=== PATIENT | male | born 1955 | race Caucasian/White ===

== ENCOUNTER 2016-06-20 20:15 | Emergency (ER) | payer BC ==
[~2016-06-20] VITALS: Ht 170.2 cm; Wt 102.1 kg
[~2016-06-20 20:15] MED LIST: ALLO300T2 PO; AMLO-110 PO; ASPEC325 PO; FURO20TA PO; LISI-725 PO; METO25TA56 PO; NPR500 PO; OMEG10002 PO; POTA10CA28 PO; ROSU40TA PO
[2016-06-20 20:26] VITALS: BP 194/96; PULSE 65; TEMP 37; O2SAT 95; Ht 170.2 cm; Wt 102.1 kg
--- NOTE | 2016-06-21 00:15 | EMERGENCY ROOM VISIT NOTE ---
ED Visit Note First contact with patient: 20:41 CHIEF COMPLAINT: Tick in the right upper thigh HISTORY OF PRESENT ILLNESS: Patient is a 60-year-old white male who noted a possible tick embedded in his right upper thigh this evening. He noted a small black dot with surrounding redness and tenderness. He thought it could be a tick. He was outside recently where he could have been exposed. REVIEW OF SYSTEMS: Review of systems as per HPI. All other systems reviewed were negative. At least 6 systems reviewed. PMH: Electronic medical records are reviewed and summarized as above/below. See Problem List. He believes his tetanus is up-to-date. SOCIAL HISTORY: Patient lives at home. Nonsmoker. PHYSICAL EXAM: Vital Signs: Reviewed Nurse's notes. INTEGUMENTARY: Examination of the proximal, anterior thigh show a small, raised , erythematous papule that doesn't appear to have a dark center. There is no obvious intact tick. The area is slightly tender to palpation. EMERGENCY DEPARTMENT COURSE: The area was cleansed with alcohol and anesthetized with ethyl chloride. An 18-gauge needle was inserted underneath the area and excised off. There was no remaining foreign body. I discussed with the patient that it did not appear classic for a tick bite, however treated it as such. Could also have been a small pustule or infected hair follicle. Nonetheless, he was educated on the worrisome signs or symptoms for which she should return to the emergency department. The area was cleansed and covered with bacitracin and a light bandage. Problem List Medical Problems: (1) Fall Status: Resolved (2) Hyperlipidemia Nec/Nos Status: Chronic (3) Hypertension Status: Chronic (4) Left Knee DJD Status: Resolved (5) Neck strain Status: Resolved (6) Right Knee DJD Status: Resolved (7) Shoulder contusion Status: Resolved (8) Sleep Apnea, Unspecified Status: Chronic (9) Tick bite Status: Resolved Surgical Problems: (1) Total knee replacement status Status: Resolved Current/Historical Medications Scheduled Allopurinol (Zyloprim), 300 MG PO HS Amlodipine (Norvasc), 5 MG PO QAM Aspirin (Aspirin), 325 MG PO BID Furosemide (Lasix), 20 MG PO QAM Lisinopril (Zestril), 20 MG PO QAM Metoprolol Tartrate (Lopressor) (Lopressor), 25 MG PO BID Naproxen (Naprosyn), 1 TAB PO BID [place]-3 Fatty Acids (Fish Oil), 1,000 MG PO BID Potassium Chloride (Micro-K Ext Rel), 10 MEQ PO QAM Rosuvastatin Calcium (Crestor), 40 MG PO QAM Allergies Coded Allergies: No Known Allergies (Verified , 01/07/16) Vital Signs Date Time Temp Pulse Resp B/P Pulse Ox O2 Delivery O2 Flow Rate FiO2 06/20/16 20:26 37.0 65 20 194/96 95 Room Air Departure Information Impression Primary Impression: Tick bite Dispostion Home / Self-Care Condition GOOD Patient Instructions My [facility] [place] [employer] Additional Instructions Use Ibuprofen or Tylenol as needed for pain/discomfort. Follow up with family physician for continued care and treatment; rashes, bullet lesion, muscle or joint pain. Watch for signs of infection; increasing redness and swelling, pus like drainage or fevers. Keep antibiotic ointment on the site for 2-3 days. Return to the ED for signs of infection. Problem Qualifiers Primary Impression: Tick bite Encounter type: initial encounter Qualified Codes: W57.XXXA - Bitten or stung by nonvenomous insect and other nonvenomous arthropods, initial encounter
== END 2016-06-20 21:35 | disposition home or self-care (01) ==
LOC: C.EDB 20:16 → C.EDD 21:35
DX: S70.361A Insect bite (nonvenomous), right thigh, initial encounter (principal); W57.XXXA Bitten or stung by nonvenomous insect and other nonvenomous arthropods, initial encounter; E78.5 Hyperlipidemia, unspecified; G47.30 Sleep apnea, unspecified; Z79.1 Long term (current) use of non-steroidal anti-inflammatories (NSAID); Z79.82 Long term (current) use of aspirin; Z79.899 Other long term (current) drug therapy

== ENCOUNTER 2016-07-14 09:35 | Emergency (ER) | payer OTHER, BC ==
[~2016-07-14] VITALS: Ht 170.2 cm; Wt 100.7 kg
[2016-07-14 09:37] VITALS: TEMP 36.5; Ht 170.2 cm; Wt 100.7 kg
[2016-07-14] MEDS ORDERED: OXYCODONE HCL IR 5 MG TAB (IMMEDIATE RELEASE) PO STA (09:44)
--- NOTE | 2016-07-14 10:00 | EMERGENCY ROOM VISIT NOTE ---
History Report prepared by Tnoya: Eufemia Muse Under the Supervision of: Dr. Yordan Edouard D.O. First contact with patient: 09:41 Chief Complaint: KNEEPAIN Stated Complaint: LF KNEE PAIN History of Present Illness The patient is a 60 year old male who presents to the Emergency Room with complaints of persistent left knee pain that began prior to arrival. He currently rates his discomfort as an 8.5/10 in severity. The patient states that he had a left knee replacement in January. He states that today while at work he fell, twisting his left knee. The patient describes his pain as a throbbing pain. He states that he had no other injury due to the fall. The patient denies hitting his head. He denies any back pain or groin pain. Source of History: patient Onset: prior to arrival Position: knee (left) Symptom Intensity: 8.5/10 Quality: other (throbbing) Timing: other (persistent) Associated Symptoms: No back pain Review of Systems See HPI for pertinent positives & negatives. A total of 10 systems reviewed and were otherwise negative. Past Medical & Surgical Medical Problems: (1) Fall (2) Hyperlipidemia Nec/Nos (3) Hypertension (4) Left Knee DJD (5) Neck strain (6) Right Knee DJD (7) Shoulder contusion (8) Sleep Apnea, Unspecified (9) Tick bite Surgical Problems: (1) Total knee replacement status Family History Diabetes mellitus Heart disease Hypertension Social History Smoking Status: Current Every Day Smoker Alcohol Use: none Drug Use: none Marital Status: Housing Status: lives with family Occupation Status: employed Current/Historical Medications Scheduled Allopurinol (Zyloprim), 300 MG PO HS Amlodipine (Norvasc), 5 MG PO QAM Aspirin (Aspirin), 325 MG PO BID Furosemide (Lasix), 20 MG PO QAM Lisinopril (Zestril), 20 MG PO QAM Metoprolol Tartrate (Lopressor) (Lopressor), 25 MG PO BID [place]-3 Fatty Acids (Fish Oil), 1,000 MG PO BID Potassium Chloride (Micro-K Ext Rel), 10 MEQ PO QAM Rosuvastatin Calcium (Crestor), 40 MG PO QAM Scheduled PRN Oxycodone Immediate Rel Tab (Roxicodone Ir), 1-2 TAB PO Q4H PRN for Severe Pain Allergies Coded Allergies: No Known Allergies (Verified , 07/14/16) Physical Exam Vital Signs Date Time Temp Pulse Resp B/P Pulse Ox O2 Delivery O2 Flow Rate FiO2 07/14/16 10:47 66 18 150/89 96 07/14/16 09:37 36.5 62 18 168/95 95 Room Air Physical Exam GENERAL: Patient is awake, alert, very anxious and uncomfortable appearing. Appears to be in significant pain. EYES: The conjunctivae are clear. The pupils are round and reactive. EARS, NOSE, MOUTH AND THROAT: The nose is without any evidence of any deformity. Mucous membranes are moist tongue is midline NECK: The neck is nontender and supple. RESPIRATORY: Normal respiratory effort is noted there is no evidence of wheezing rhonchi or rales CARDIOVASCULAR: Regular rate and rhythm noted there no murmurs rubs or gallops normal S1 normal S2 GASTROINTESTINAL: The abdomen is soft. Bowel sounds are present in all quadrants. Abdomen is nontender BACK: No midline tenderness or or step-off noted range of motion in flexion extension as well as rotation no signs of muscle spasm noted MUSCULOSKELETAL/EXTREMITIES: Swelling over left knee. Knee effusion noted to palpation. Patient was able to keep left leg extended off of bed, tenderness over the lateral aspect of knee. Negative anterior drawer test. Tenderness over proximal tib/fib. SKIN: There is no obvious evidence of any rash. There are no petechiae, pallor or cyanosis noted. NEUROLOGIC: Patient is awake alert and oriented x3. Medical Decision & Procedures ER Provider Diagnostic Interpretation: X-ray results as stated below per interpretation by me and the radiologist. LEFT KNEE 1 OR 2 VIEWS ROUTINE CLINICAL HISTORY: fall trauma. Pain. COMPARISON: 01/07/2016 DISCUSSION: Operative findings consistent with a prior total left knee replacement. No acute bony abnormality. Good contact between prosthetic and underlying bone. Mild prepatellar soft tissue edema IMPRESSION: No acute bony abnormalities status post total left knee prosthetic Electronically signed by: Harish Hoffman M.D. 07/14/2016 10:10 AM Dictated Date/Time: 07/14/2016 10:09 AM Medications Administered Medications (Trade) Dose Ordered Sig/Law Route Start Time Stop Time Status Last Admin Dose Admin Oxycodone HCl (Roxicodone Immediate Rel Tab) 5 mg NOW STAT PO 07/14/16 09:44 3/14/17 09:45 DC 07/14/16 09:53 5 MG ED Course 0942: The patient was evaluated in room B3B. A complete history and physical examination were performed. 0944: Ordered Oxycodone HCl 5 mg PO. 1014: I reevaluated the patient and he is resting comfortably. I discussed the exam findings with him and I discussed the treatment plan. He verbalized complete understanding and agreement. He is ready to go home. Medical Decision Differential diagnosis: Etiologies such as fracture, dislocation, neurovascular compromise, compartment syndrome, soft tissue injury, as well as others were entertained. Nursing notes reviewed. The patient is a 60-year-old male who has a history of knee replacement surgery who presented to the emergency department for an evaluation of left knee pain after fall. The patient has significant swelling and tenderness over the lateral aspect of the knee. X-rays did not reveal any bony abnormality and the replacement appears intact. I discussed the patient's review graphic studies with him. He was treated with pain medication and placed in a knee immobilizer and given crutches. At this time I feel this represents a lateral collateral ligament injury. I discussed this injury with him. I encouraged him to follow- up with his general orthopedic doctor this week. He was also encouraged to continue to be minimal weightbearing and use the crutches and a knee immobilizer until he was pain-free and cleared by his primary orthopedic physician. He was encouraged to return to the emergency department immediately if symptoms change worsen or the need arises. Impression Primary Impression: Fall Additional Impressions: Effusion, left knee Left knee sprain Internal derangement of left knee Scribe Attestation The scribe's documentation has been prepared under my direction and personally reviewed by me in its entirety. I confirm that the note above accurately reflects all work, treatment, procedures, and medical decision making performed by me. Departure Information Dispostion Home / Self-Care Prescriptions Oxycodone Immediate Rel Tab (ROXICODONE IR) 5 Mg Tab 1-2 TAB PO Q4H Y for Severe Pain, #20 TAB Prov: Yordan Edouard, 07/14/16 Referrals No Doctor, Assigned (PCP) Forms HOME CARE DOCUMENTATION FORM, IMPORTANT VISIT INFORMATION, Work Instructions Patient Instructions ED Sprain Knee Collateral Ligaments, My [facility] Additional Instructions Follow-up with your orthopedic physician this week. Rest and avoid any strenuous activity. Continue using Motrin and Tylenol as directed for mild pain. Continue using the knee immobilizer and crutches with minimal weightbearing until your pain free and cleared by your primary orthopedic surgeon. Problem Qualifiers Primary Impression: Fall Encounter type: initial encounter Qualified Codes: W19.XXXA - Unspecified fall, initial encounter Additional Impressions: Left knee sprain Encounter type: initial encounter Involved ligament of knee: lateral collateral ligament Qualified Codes: S83.422A - Sprain of lateral collateral ligament of left knee, initial encounter
--- NOTE | 2016-07-14 10:11 | DIAGNOSTIC IMAGING REPORT ---
LEFT KNEE 1 OR 2 VIEWS ROUTINE CLINICAL HISTORY: fall trauma. Pain. COMPARISON: 01/07/2016 DISCUSSION: Operative findings consistent with a prior total left knee replacement. No acute bony abnormality. Good contact between prosthetic and underlying bone. Mild prepatellar soft tissue edema IMPRESSION: No acute bony abnormalities status post total left knee prosthetic Electronically signed by: Harish Hoffman M.D. 07/14/2016 10:10 AM Dictated Date/Time: 07/14/2016 10:09 AM
[2016-07-14] MEDS ORDERED: OXYC1TAB3 PO (10:24)
[2016-07-14 10:47] VITALS: BP 150/89; PULSE 66; O2SAT 96
== END 2016-07-14 10:48 | disposition home or self-care (01) ==
LOC: EDBD 09:35 → C.EDB 09:37
DX: S83.92XA Sprain of unspecified site of left knee, initial encounter (principal); W19.XXXA Unspecified fall, initial encounter; Y92.89 Other specified places as the place of occurrence of the external cause; Y99.0 Civilian activity done for income or pay; M23.92 Unspecified internal derangement of left knee; M25.462 Effusion, left knee; I10 Essential (primary) hypertension; E78.5 Hyperlipidemia, unspecified; G47.30 Sleep apnea, unspecified; F17.200 Nicotine dependence, unspecified, uncomplicated; Z87.828 Personal history of other (healed) physical injury and trauma; Z96.659 Presence of unspecified artificial knee joint; Z79.82 Long term (current) use of aspirin; Z79.899 Other long term (current) drug therapy; Z83.3 Family history of diabetes mellitus; Z82.49 Family history of ischemic heart disease and other diseases of the circulatory system

== ENCOUNTER → 2017-02-01 | Outpatient (CLI) | payer BC ==
[~2017-02-01] MED LIST changes: -NPR500 PO
[2017-02-01 11:32] LABS: HEMATOCRIT 50.8 % (42-52); MEAN CELL VOLUME 90.4 fL (80-100); MEAN CORPUSCULAR HEMOGLOBIN 30.8 pg (25-34); MEAN CORPUSCULAR HGB CONC 34.1 g/dl (32-36); MEAN PLATELET VOLUME 10.3 fL (7.4-10.4); PLATELET COUNT 149 K/uL (130-400); RED BLOOD COUNT 5.62 M/uL (4.7-6.1); WHITE BLOOD COUNT 7.85 K/uL (4.8-10.8)
== END | disposition home or self-care (01) ==
LOC: C.LABBC 08:33
PROVIDERS: ATTEND Orthopaedic Surgery Sports Medicine
DX: M25.469 Effusion, unspecified knee (principal)

== ENCOUNTER → 2017-02-08 | Outpatient (CLI) | payer BC ==
[2017-02-08 18:15] LABS: SYNOVIAL FLUID APPEARANCE HAZY; SYNOVIAL FLUID COLOR YELLOW; SYNOVIAL FLUID MONONUC RELAT 64.2 %; SYNOVIAL FLUID POLYNUC RELAT 35.8 %
== END | disposition home or self-care (01) ==
LOC: C.LABBC 12:43
PROVIDERS: ATTEND Orthopaedic Surgery Sports Medicine
DX: M25.469 Effusion, unspecified knee (principal)

== ENCOUNTER 2024-03-19 14:41 | Inpatient (IN) ==
--- OUTSIDE RECORDS SUMMARY | 2024-03-19 14:47 | External Medical Summary ---
Author Name Unknown Address Unknown Organization [id number]:[facility] - [address] [place] [address] Laboratory Report Ordering Provider Test Date Status ALEXANDRE KAPOOR 11/30/2023 07:06:23 Final Observation Date Value Abnormality Reference (Units ) Status WBC, Total 11/30/2023 07:06:23 7.35 4.00-10.80 (K/uL) Final RBC 11/30/2023 07:06:23 5.64 4.50-5.25 (M/uL) Final Hemoglobin 11/30/2023 07:06:23 17.2 Above high normal 14.0-16.8 (g/dL) Final HCT 11/30/2023 07:06:23 51.5 Above high normal 40.0-48.4 (%) Final MCV 11/30/2023 07:06:23 91.3 82.0-99.5 (fL) Final MCH 11/30/2023 07:06:23 30.5 27.0-34.0 (pg) Final MCHC 11/30/2023 07:06:23 33.4 32.0-36.0 (g/dL) Final RDW 11/30/2023 07:06:23 14.1 11.5-15.5 (%) Final Platelets 11/30/2023 07:06:23 164 140-400 (K/uL) Final MPV 11/30/2023 07:06:23 11.2 6.6-11.1 (fL) Final Nucleated erythrocytes/100 leukocytes [Ratio] in Blood by Automated count 11/30/2023 07:06:23 0 <=0 (/100 WBCs) Final Performing Location [facility] - [address] [place] [address]
--- OUTSIDE RECORDS SUMMARY | 2024-03-19 14:47 | External Medical Summary | Summary of Care ---
Author Name Unknown Organization [facility] Address [address] [place] [address] Phone [phone] Care Team Providers Care Washer And Crusher Tender Name Role Phone Phong Matute PA-C Primary Care Provider [phone] Reason for Visit * Reason Comments Outpatient Testing Encounter Details Date Type Department Care Team (Late st Contact Info) Description 11/30/2023 7:10 AM EDT Laboratory [facility] [address] [place], [facility] [address] [place] [address] Essential hypertension with goal blood pressure less than 150/90 Allergies No known active allergiesdocumented as of this encounter (statuses as of 11/30/2023) Medications Medication Sig Dispensed Refills Start Date End Date Status FISH OIL 1000 MG PO CAPSIndications:Mixed dyslipidemia one pill three times a day 90 5 02/20/2008 Active Acetaminophen-Codeine #3 300-30 MG Oral Tablet (Tylenol #3) Take by mouth 1 Tablet every 4 hours as needed for Pain, Moderate. May take 2 tablets for severe pain. 15 Tablet 1 08/29/2021 Active Meloxicam 15 MG Oral Tablet (Mobic)Indications:Ar thralgia of both knees,Chronic bilateral low back pain without sciatica TAKE 1 TABLET BY MOUTH DAILY for pain 90 Tablet 2 06/16/2023 Active Furosemide 20 MG Oral Tablet (Lasix)Indications:Ed lobo TAKE 1 TABLET BY MOUTH DAILY 90 Tablet 3 06/17/2023 Active Lisinopril 20 MG Oral Tablet (Prinivil)Indications :HTN, goal below 140/90 TAKE 2 TABLETS BY MOUTH IN THE MORNING 180 Tablet 3 06/17/2023 Active Allopurinol 300 MG Oral Tablet (Zyloprim)Indications :Gout, unspecified cause, unspecified chronicity, unspecified site TAKE 1 TABLET BY MOUTH DAILY 90 Tablet 3 06/17/2023 Active Potassium Chloride ER 10 MEQ Oral Tablet Extended Release TAKE 1 TABLET BY MOUTH DAILY 90 Tablet 3 06/17/2023 Active Metoprolol Succinate ER 25 MG Oral Tablet Extended Release 24 Hour (toPROL XL)Indications:HTN, goal below 140/90 TAKE 1 TABLET BY MOUTH DAILY 90 Tablet 3 06/17/2023 Active Rosuvastatin Calcium 40 MG Oral Tablet (Crestor)Indications: Mixed dyslipidemia TAKE 1 TABLET BY MOUTH DAILY 90 Tablet 3 06/17/2023 Active amLODIPine Besylate 10 MG Oral Tablet (Norvasc)Indications: Essential hypertension with goal blood pressure less than 140/90 TAKE 1 TABLET BY MOUTH DAILY 90 Tablet 3 06/17/2023 Active Spironolactone 25 MG Oral Tablet (Aldactone)Indication s:HTN, goal below 140/90 Take 1 Tablet by mouth in the morning. 30 Tablet 11 08/27/2023 Active documented as of this encounter (statuses as of 11/30/2023) Active Problems Problem Noted Date Diagnosed Date AAA (abdominal aortic aneurysm) 04/14/2023 Overview: 3.6 cm AAA noted on screening us 04/08/23 Carpal tunnel syndrome, bilateral 05/21/2021 Mixed dyslipidemia 10/10/2020 HTN, goal below 140/90 04/10/2015 Status post unicompartmental knee replacement, r ight 10/09/2014 Displacement of cervical int ervertebral disc without myelopathy 12/18/2011 BMI 35-39 ISOLATED (SEE ACTUAL BMI) 10/14/2009 Overview: Per Obesity Protocol, #19 DYSLIPIDEMIA, GOAL TO BE DETERMINED 04/17/2009 Overview: Per Lipid Taxonomy. Gout 01/17/2009 Edema 05/24/2001 Snoring Overview: ICD-10 update of inactive term documented as of this encounter (statuses as of 11/30/2023) Resolved Problems Problem Noted Date Diagnosed Date Resolved Date Infection of total right knee replacement 10/09/2014 10/09/2014 HTN, goal below 140/90 12/07/200504/03 Mixed dyslipidemia 05/24/2001 9 Overview: Per Lipid Taxonomy. HTN, goal below 130/80 04/10 documented as of this encounter (statuses as of 11/30/2023) Immunizations Name Administration Dates Next Due Pneumococcal Conjugate Vacc, 13 Valent (Prevnar) 06/05/2016 Pneumococcal Polysaccharide PPV23 (Pneumovax) 09/09/2017,03/12/2014(Deferred: Patient Refused) Seasonal Influenza Virus Vac cine, Unspecified Formulation 01/12/2019,02/28/2018,02/27/2017,02/06,03/11/2015 Seasonal Influenza, PF, 6 M & above, IM , (FluLaval or Fluzone) 01/12/2019,02/28/2018,02/27/2017 Seasonal Influenza, Quadriva lent Hd (Fluzone Hd) 02/23/2022 Seasonal Influenza, Quadriva lent, No Preserve, IM 02/07/2016 Seasonal Influenza, Recombin ant, RIV4, PF, (Flublock) 02/04/2020 Seasonal Influenza, Split, I IV3, With Preserve, Inj 03/11/2015,03/12/2014(Deferred: Patient Refused) Seasonal Influenza, Trivalen t, Adjuvanted, 65+ yrs 02/13/2021 TD - Tetanus/Diptheria (ADULT) 08/28/2005 TDAP, Age 7 and older, IM (Adacel) 12/22/2010 Varicella Zoster Vaccine (Adult) 03/09/2017 Zoster Vaccine Recombinant (Shingrix) 12/17/2020 ,04/11/2020 documented as of this encounter Social History Tobacco Use Types Packs/Day Years Used Date Smoking Tobacco: Every Day Cigarettes Pipe Smokeless Tobacco: Never Alcohol Use Standard Drinks/Week Comments Yes 0 (1 standard drink = 0.6 oz pur e alcohol) very little PHQ-2 Answer Date Recorded PHQ Adult Total Score 0 02/23/2022 Hunger Vital Sign Answer Date Recorded Within the past 12 months, y ou worried that your food would run out before you got the money to buy more. Never true 02/24/20 22 Within the past 12 months, t he food you bought just didn't last and you didn't have money to get more. Never true 02/23/2022 Sex and Gender Information Value Date Recorded Sex Assigned at Male 01/12/2019 10:52 AM EDT Gender Identity Male 01/12/2019 10:52 AM EDT Sexual Orientation Straight 02/23/2022 1: 25 PM EDT Job Start Date Occupation Industry Not on file Not on file Not on file documented as of this encounter Plan of Treatment Upcoming Encounters Date Type Department Care Team ([facility] st Contact Info) Description 12/07/2023 7:20 AM EDT Office Visit [address] [address] Phong Matute PA-C [address] [place] [address] 04/13/2024 8:00 AM EST Office Visit Nephrology, [address] [address] Torin Wright, DO [address] [place] [address] Pending Results Name Type Priority Associated Diagnoses Date /Time ALBUMIN / CREATININE RATIO, URINE Lab Routine Essential hypertension with goal blood pressure less than 150/90 11/30/2023 7:06 AM EDT CBC Lab Routine Essential hypertension with goal blood pressure less than 150/90 11/30/2023 7:06 AM EDT COMPREHENSIVE METABOLIC PANEL Lab Routine Essential hypertension with goal blood pressure less than 150/90 11/30/2023 7:06 AM EDT LIPID PANEL WITH DIRECT LDL IF TG IS HIGH Lab Routine Essential hypertension with goal blood pressure less than 150/90 11/30/2023 7:06 AM EDT Scheduled Procedures Name Priority Associated Diagnoses Date/Ti me DESTROY LUMBAR SACRAL NERVE IMAGING SINGLE Spondylosis of lumbosacral region without myelopathy or radiculopathy DESTROY LUMBAR SACRAL NERVE IMAGING ADD'L Spondylosis of lumbosacral region without myelopathy or radiculopathy COLONOSCOPY FLEXIBLE PROXIMA L DIAGNOSTIC Recall History of colon polyps Health Maintenance Due Date Last Done Comments DISCUSS TOBACCO CESSATION (REFER TO SMARTSET #[id number]) 1955 Cologuard 08/12/2000 Fecal Occult Blood Test 08/12/2000 Sigmoidoscopy 08/12/2000 Albumin/Creatinine Ratio 03/04/2020 03/04/2017 DTaP,Tdap,and Td Vaccines (2 - Td or Tdap) 12/22/2020 12/22/2010, 08/28/2005 Pneumococcal Vaccine: 65+ Years (3 of 3 - PPSV23 or PCV20) 09/09/2022 09/09/2017, 06/05/2016 COVID-19 Vaccine ( - season) 2023 Depression Screening 02/23/2023 02/23/2022 Influenza Vaccine (FLU shot) (#1) 2024 02/23/2022, 02/13/2021, 02/04/2020, Additional history exists GFR 06/01/2024 06/01/2023, 06/04, 07/14/2021, Additional history exists Colonoscopy 02/09/2025 02/09/2022, 01/31, 01/21/2021, Additional history exists Colorectal Cancer Screening 02/09/2025 Diabetes Screening 06/01/2026 06/01/2023, 0 06/25/2022, 06/25/2022, Additional history exists Lipid Panel 06/01/2028 06/01/2023, 06/04, 07/14/2021, Additional history exists *BASELINE EKG FOR HTN Completed 09/04/2013 Hepatitis C Screening Completed 03/04/2017 Zoster Vaccines Completed 12/17/2020, 04/02, 03/09/2017 HPV (Gardasil) Vaccine Aged Out No lo nger eligible based on patient's age to complete this topic Hepatitis B Vaccine Aged Out No longe r eligible based on patient's age to complete this topic MENINGOCOCCAL (MENACTRA/MENVEO) Aged Out No longer eligible based on patient's age to complete this topic documented as of this encounter Medical Devices Not on filedocumented as of this encounter Visit Diagnoses Diagnosis Essential hypertension with goal blood pressure less than 150/90 documented in this encounter Care Teams Washer And Crusher Tender Relationship Specialty Start Date End Date Phong Matute PA-C [address] [place], [place] [address]ALEIDA mora [id number] PCP - General Physician Cabinet Installer 07/02/22 documented as of this encounter
--- OUTSIDE RECORDS SUMMARY | 2024-03-19 14:47 | External Medical Summary ---
Author Name Unknown Address Unknown Organization [id number]:[facility] [address] [id number] Laboratory Report Ordering Provider Test Date Status ALEXANDRE KAPOOR 11/30/2023 07:06:23 Final Normal: <30 mg/g creatinine< br/>High: 30-300 mg/g creatinine
Very High: >300 mg/g creatinine
Nephrotic: >2200 mg/g creatinine Observation Date Value Abnormality Reference (Units ) Status Albumin, Urine 11/30/2023 07:06:23 2.85 (mg/dL) Final Creatinine, Urine 11/30/2023 07:06:23 58 (mg/dL) Final Albumin/Creatinine [Mass Ratio] in Urine 11/30/2023 07:06:23 49 Above high normal <30 (mg/g Creat) Final Performing Location [facility] [address] [place] [address]
--- OUTSIDE RECORDS SUMMARY | 2024-03-19 14:47 | External Medical Summary | Summary of Care ---
Author Name Unknown Organization [facility] Address [address] [place] [address] Phone [phone] Care Team Providers Care Index Clerk Name Role Phone Phong Schroeder PA-C Primary Care Provider [phone] Reason for Visit * Reason Onset Date Comments No Show 12/10/2023 [facility] No Show Auto mation Encounter Details Date Type Department Care Team ([facility] Contact Info) Description 12/10/[address] [phone] Phong Schroeder PA-C [address] [place] [address] No Show ([facility] No Show Automation) Allergies No known active allergiesdocumented as of this encounter (statuses as of 12/10/2023) Medications Medication Sig Dispensed Refills Start Date [...] as of this encounter (statuses as of 12/10/2023) Active Problems Problem Noted Date Diagnosed Date [...] as of this encounter (statuses as of 12/10/2023) Resolved Problems Problem Noted Date Diagnosed Date Resolved Date Infection of total right knee replacement 10/09/2014 10/09/2014 HTN, goal below 140/90 12/07/200504/03 Mixed dyslipidemia 05/24/2001 12//200 9 Overview: Per Lipid Taxonomy. HTN, goal below 130/80 04/10 documented as of this encounter (statuses as of 12/10/2023) Immunizations Name Administration Dates Next Due Pneumococcal [...] on file documented as of this encounter Miscellaneous Notes * Telephone Encounter - Kristina, No Show - 12/10/2023 5:06 PM EDT Dear Venu Bennett, Looks like you missed an appointment with PHONG SCHROEDER on 12/07/2023 at 07:20 AM. If you haven't already rescheduled, you have a couple of options: Reschedule in [employer]Guom[employer]/scheduling Call us at [phone] Can't make a future appointment? Cancel and let someone else have your spot! It's easy to do via [employer] or by calling us. [facility] We hope to see you back in our office soon. Sincerely, PHONG SCHROEDER documented in this encounter Plan of Treatment Upcoming Encounters Date Type Department Care Team (Late st Contact Info) Description 04/13/2024 8:00 AM EST Office [facility] [address] [place] [address] Torin Wright, DO [address] [facility] [place] [address] Scheduled Procedures Name Priority Associated Diagnoses Date/Ti me DESTROY LUMBAR SACRAL NERVE IMAGING SINGLE Spondylosis of lumbosacral region without myelopathy or radiculopathy DESTROY LUMBAR SACRAL NERVE IMAGING ADD'L Spondylosis of lumbosacral region without myelopathy or radiculopathy COLONOSCOPY FLEXIBLE PROXIMA L DIAGNOSTIC Recall History of colon polyps Health Maintenance Due Date Last Done Comments DISCUSS TOBACCO CESSATION (REFER TO SMARTSET #1316) 1955 Cologuard 08/12/2000 Fecal Occult Blood Test 08/12/2000 Sigmoidoscopy 08/12/2000 DTaP,Tdap,and Td Vaccines (2 - Td or Tdap) 12/22/2020 12/22/2010, 08/28/2005 Adult Wellness Visit 08/12/2021 Pneumococcal Vaccine: 65+ Years (3 of 3 - PPSV23 or PCV20) 09/09/2022 09/09/2017, 06/05/2016 COVID-19 Vaccine ( - 2022- season) 2023 Depression Screening 02/23/2023 02/23/2022 Influenza Vaccine (FLU shot) (#1) 2024 02/23/2022, 02/13/2021, 02/04/2020, Additional history exists GFR 11/29/2024 11/30/2023, 05/05, 06/25/2022, Additional history exists Colonoscopy 02/09/2025 02/09/2022, 01/31, 01/21/2021, Additional history exists Colorectal Cancer Screening 02/09/2025 Albumin/Creatinine Ratio 11/29/2026 11/30/2023, 06/2016 Diabetes Screening 11/29/2026 11/30/2023, 0 06/01/2023, 06/25/2022, Additional history exists Lipid Panel 11/29/2028 11/30/2023, 05/05, 06/25/2022, Additional history exists Hepatitis C Screening Completed 03/04/2017 Zoster Vaccines [...] Not on filedocumented as of this encounter Care Teams Index Clerk Relationship Specialty Start Date End Date Phong Schroeder PA-C [address] [place], [place] [address] [id number] PCP - General Physician Unloader Operator 07/02/22 documented as of this encounter
--- OUTSIDE RECORDS SUMMARY | 2024-03-19 14:47 | External Medical Summary ---
Author Name Unknown Address Unknown Organization [id number]:[facility] [place] [address] [facility] [place] [address] Laboratory Report Ordering Provider Test Date Status ALEXANDRE KAPOOR 11/30/2023 07:06:23 Final Observation Date Value Abnormality Reference (Units ) Status Triglyceride 11/30/2023 07:06:23 54 <=174 ( mg/dL) Final Triglyceride Reference Range s (mg/dL):
<150 Acceptable
150-174 Borderline high
175-499 High
>=500 Very high Cholesterol 11/30/2023 07:06:23 101 <200 (mg /dL) Final Total Cholesterol Reference Ranges (mg/dL):
<200 Desirable
200-239 Borderline high
>=240 High HDL 11/30/2023 07:06:23 43 >39 (mg/dL ) Final HDL Cholesterol Reference Ra nges (mg/dL):
>=60 High (Desirable)
<50 Low (Undesirable) For Females
<40 Low (Undesirable) For Males NON-HDL CHOLESTEROL 11/30/2023 07:06:23 58 <=159 (mg/dL) Final Non-HDL Cholesterol Referenc e Range (mg/dL):
<100 Target level for high risk ASCVD patient
<130 Optimal for general population
130-159 Near optimal for general population
160-189 Borderline High
190-219 High
>=220 Very High LDL, (calculated) 11/30/2023 07:06:23 47 <= 129 (mg/dL) Final LDL Cholesterol Reference Ra nges (mg/dL):
<70 Target level for high risk ASCVD patient
<100 Optimal for general population
100-129 Near optimal for general population
130-159 Borderline high
160-189 High
>=190 Very high Performing Location [facility] [place] [address] [facility] [place] [address]
--- OUTSIDE RECORDS SUMMARY | 2024-03-19 14:47 | External Medical Summary | Summary of Care ---
Author Name Unknown Organization [facility] Address [address] [facility] [place] [address] Phone [phone] Care Team Providers Care Laundromat Worker Name Role Phone MatutePhong PA-C Primary Care Provider [phone] Reason for Referral * Evaluate & Treat - Unlimited Visits (Within 10 days (routine)) - Authorized Specialty Diagnoses / Procedures Referred By Minor arteaga Referred To Contact Physical Therapy / Physical Medicine And Rehab Diagnoses Lumbar radiculopathy Erica Espinal CRNP [address] [place] [address] Referral ID Status Reason Start Date Expiration Date Visits Requested Visits Authorized [id number] Authorized Specialty Services Required 09/24/2023 999 999 Question Answer Referral Priority Within 10 days (routine) Where should this appointment be scheduled? [facility] Comments Plan: Back core strengthening, stretching, ROM, conditioning, lower extremity strengthening as needed, topicals as needed 2 x a week for 6 weeks Modalities for pain relief Reason for Visit * Reason Comments Follow Up Encounter Details Date Type Department Care Team (Late st Contact Info) Description 09/24/2023 11:15 AM EDT Office Visit Orthopaedics Spine Surgery, [facility] [address] [facility] [place] [address] Kelvin Cope MD [address] [place] [address] [place] [address] Lumbar radiculopathy*; Obesity (BMI 30.0-34.9); Chronic midline low back pain without sciatica; Tobacco use Allergies No known active allergiesdocumented as of this encounter (statuses as of 09/24/2023) Medications Medication Sig Dispensed Refills Start Date [...] as of this encounter (statuses as of 09/24/2023) Active Problems Problem Noted Date Diagnosed Date [...] as of this encounter (statuses as of 09/24/2023) Resolved Problems Problem Noted Date Diagnosed Date Resolved Date Infection of total right knee replacement 10/09/2014 10/09/2014 HTN, goal below 140/90 12/07/200504/03 Mixed dyslipidemia 05/24/2001 12//200 9 Overview: Per Lipid Taxonomy. HTN, goal below 130/80 04/10 documented as of this encounter (statuses as of 09/24/2023) Immunizations Name Administration Dates Next Due PPD 01/14/1996 Pneumococcal Conjugate Vacc, 13 Valent (Prevnar) 06/05/2016 [...] yrs 02/13/2021 TD - Tetanus/Diptheria (ADULT) 08/28/2005 TDAP (age 11 and older)(Adacel) 12/22/2010 Varicella Zoster Vaccine (Adult) 03/09/2017 Zoster [...] on file documented as of this encounter Progress Notes * Erica Espinal CRNP - 09/24/2023 12:19 PM EDT Date of service: 09/24/2023 Venu Bennett is a 68 year old male presents for a follow up visit with chronic low back pain withradiculopathy. He is unsure if his knee pain is related to history of replacement or radiating downfrom his back. He completed PT from January to October of 2023 and has received two injection from pain management which he reports helps. No recent MRI or CT of spine or record. Prior history: hypertension, hyperlipidemia, elevated BMI, tobacco use. Allergies: Patient has no known allergies. The past medical, surgical, medication, family, social history was reviewed and has been documentedelsewhere in the chart ROS: Negative except as outlined in HPI Vitals: There were no vitals taken for this visit. There is no height or weight on file to calculate BMI. Physical Exam: General: alert, healthy and no distress. The general appearance appears normal. Cardiovascular system: Vascular status grossly preserved in the extremities Spine evaluation cervical, thoracic and lumbar: Overlying skin unremarkable. No paraspinal swellingin the paraspinal and periscapular region. No obvious deformity. Neurological examination: Gross motor power Upper extremities - Bilateral shoulder abductors, elbow flexors, triceps, wrist flexors and extensors and intrinsic muscles of the hand 5/5. Lower extremities - Bilateral hip flexors, knee extensors, ankle dorsiflexors, ankle plantar flexors, EHL/EDL, FHL/FDL 5/5. The deep tendon reflexes - Bilateral Biceps, triceps, brachioradialis, Patellar tendon, Achilles tendon are 2+. Sensation are grossly preserved bilaterally in the upper extremities. Sensation are grossly preserved bilaterally in the lower extremities. Radiological imaging: I independently reviewed the relevant radiological imaging including the x-rays ordered at this visit and discussed with the patient. 09/24/23 X-ray L spine revealed stable degenerative changes. Lumbar degenerative disks. Spinal alignment maintained. Assessment & Plan: Pt is a 68 year old male here for the following: Chronic low back pain Lumbar radiculopathy Lumbar degenerative disc disease Chronic health conditions including tobacco use and high BMI We discussed the diagnosis, the natural history and treatment options. Operative option discussed with patient along with conservative measures. Patient would like to continue with interventional pain management, restart physical therapy and continue use of his back brace as needed. Referral placedfor PT and I educed him on alarm symptoms and when to contact the office. Additional recommendations: Activity modification as tolerated Pain medications as per the primary care. If the patient has persistence or worsening of symptoms additional investigations will be recommended. Warning signs have been discussed. Follow up: 3 months Patient to reach out earlier if any worsening of symptoms. The patient expressed understanding and agreement to the plan. Complexity of decision making: moderate I spent 25 minutes on 09/24/2023 in preparation, delivery and documentation of the care provided to the patient, excluding any time spent on the performance of the procedure are separately billable service. DANA Bruno Addendum: Patient assessed by me. Denies any neurological worsening. But continues to be symptomatic in relation to the back. Not interested in any intervention. Neurologically intact. Would like to consider pain management and other conservative measures. Agree with the assessment and plan of care as mentioned above. Kelvin Cope MD Ortho Spine This chart was completed in part utilizing [email or web address] Speech Voice Recognition Software. Grammatical errors, random word insertions, prounoun errors and incomplete sentences are an occasional consequence of this system due to software limitations, ambient noise, and hardware issues. Any formal questions or concerns about the content, text, or information contained within the body of this dictation should be directly addressed to the provider for clarification. documented in this encounter Nursing Notes * Gloria Jefferson LPN - 09/24/2023 11:36 AM EDT Chief Complaint Patient presents with Follow Up Reports low back discomfort today at a 2/10. Last OV was January 2023. Did not do any PT. Had injection with Dr. Herring on 08/11/2023 with good relief of pain documented in this encounter Plan of Treatment Upcoming Encounters Date Type Department Care Team (Late st Contact Info) Description 11/30/2023 7:10 AM EDT Laboratory Laboratory Patient Service [place], [place] [address] [place] [phone] [place], [facility] [place] [address] [place] [address] 12/07/2023 7:20 AM EDT Office Visit [facility] [address] [place] [phone] Phong Matute PA-C [address] [place] [phone] 04/13/2024 8:00 AM EST Office Visit Nephrology, [place] [address] [place] [address] Torin Wright, DO [address] [place] [address] Pending Results Name Type Priority Associated Diagnoses Date /Time XR L SPINE COMPLETE Medical Imaging Routine Lumbar radiculopathy 09/24/2023 11:44 AM EDT Scheduled Procedures Name Priority Associated Diagnoses Date/Ti me DESTROY LUMBAR SACRAL NERVE IMAGING SINGLE Spondylosis of lumbosacral region without myelopathy or radiculopathy DESTROY LUMBAR SACRAL NERVE IMAGING ADD'L Spondylosis of lumbosacral region without myelopathy or radiculopathy COLONOSCOPY FLEXIBLE PROXIMA L DIAGNOSTIC Recall History of colon polyps Scheduled Referrals Name Type Priority Associated Diagnoses Orde r Schedule PHYSICAL THERAPY REFERRAL OP Referral Within 10 days (routine) Lumbar radiculopathy Ordered: 09/24/2023 Health Maintenance Due Date Last Done Comments DISCUSS TOBACCO CESSATION (REFER TO SMARTSET #3291) 1955 Cologuard 08/12/2000 Fecal Occult Blood Test 08/12/2000 Sigmoidoscopy 08/12/2000 Albumin/Creatinine Ratio 03/04/2020 03/04/2017 DTaP,Tdap,and Td Vaccines (2 - Td or Tdap) 12/22/2020 12/22/2010, 08/28/2005 Pneumococcal Vaccine: 65+ Years (3 of 3 - PPSV23 or PCV20) 09/09/2022 09/09/2017, 06/05/2016 COVID-19 Vaccine ( season) 2023 Depression Screening 02/23/2023 02/23/2022 Influenza Vaccine (FLU shot) (Season Ended) 2024 02/23/2022, 02/13/2021, 02/04/2020, Additional history exists GFR 06/01/2024 06/01/2023, 06/04, 07/14/2021, Additional history exists Colonoscopy 02/09/2025 02/09/2022, 01/31, 01/21/2021, Additional history exists Colorectal Cancer Screening 02/09/2025 Diabetes Screening 06/01/2026 06/01/2023, 0 06/25/2022, 06/25/2022, Additional history exists Lipid Panel 06/01/2028 06/01/2023, 06/04, 07/14/2021, Additional history exists Hepatitis C Screening Completed 03/04/2017 Zoster Vaccines Completed 12/17/2020, 04/02, 03/09/2017 GARDASIL-HPV IMMUNIZATION SERIES Aged Out No longer eligible based on patient's age to complete this topic Hepatitis B Aged Out No longer eligi ble based on patient's age to complete this topic MENINGOCOCCAL (MENACTRA/MENVEO) Aged Out No longer eligible based on patient's age to complete this topic documented as of this encounter Medical Devices Not on filedocumented as of this encounter Visit Diagnoses Diagnosis Lumbar radiculopathy- Primary Thoracic or lumbosacral neuritis or radiculitis, unspecified Obesity (BMI 30.0-34.9) Obesity, unspecified Chronic midline low back pain without sciatica Tobacco use Tobacco use disorder documented in this encounter Care Teams Laundromat Worker Relationship Specialty Start Date End Date Phong Matute PA-C [address] [place] [address] [place] [phone] PCP - General Physician Undercover Agent 07/02/22 documented as of this encounter
--- OUTSIDE RECORDS SUMMARY | 2024-03-19 14:47 | External Medical Summary | Summary of Care ---
Author Name Unknown Organization [facility] Address [address] [facility] [place] [address] Phone [phone] Care Team Providers Care System Technologist Name Role Phone MatutePhong PA-C Primary Care Provider [phone] Reason for Referral * Evaluate & Treat - Unlimited Visits (Within 10 days (routine)) - Authorized Specialty Diagnoses / Procedures Referred By Minor arteaga Referred To Contact Physical Therapy / Physical Medicine And Rehab Diagnoses Lumbar radiculopathy Erica Espinal CRNP [address] [place] [address] Referral ID Status Reason Start Date Expiration Date Visits Requested Visits Authorized [id number] Authorized Specialty Services Required 09/24/2023 999 999 [...] AM EDT Office Visit Orthopaedics Spine Surgery, [facility] [address] [facility] [place] [address] Kelvin Cope MD [address] [place] [...] This chart was completed in part utilizing [employer] Speech Voice Recognition Software. Grammatical errors, random [...] 7:10 AM EDT Laboratory Laboratory Patient Service [place], [place] [address] [place] [phone] [place], [facility] [address] [place] [address] 12/07/2023 7:20 AM EDT Office Visit [facility] [address] [place] [phone] Phong Matute PA-C [address] [place] [phone] 04/13/2024 8:00 AM EST Office Visit Nephrology, [place] [address] [place] [address] Torin Wright, DO [address] [place] [address] Pending Results Name Type Priority Associated Diagnoses [...] disorder documented in this encounter Care Teams System Technologist Relationship Specialty Start Date End Date Phong Matute PA-C [address] [place] [address] [place] [phone] PCP - General Physician Drug Abuse Program Coordinator 07/02/22 documented as of this encounter
--- OUTSIDE RECORDS SUMMARY | 2024-03-19 14:47 | External Medical Summary ---
Author Name Unknown Address Unknown Organization K01:[facility] [place] [address] [facility] [place] [address] Laboratory Report Ordering Provider Test Date Status ALEXANDRE KAPOOR 11/30/2023 07:06:23 Final Observation Date Value Abnormality Reference (Units ) Status BUN 11/30/2023 07:06:23 11 6-20 (mg/dL) Final Creatinine 11/30/2023 07:06:23 1.2 0.6-1.2 (mg/dL) Final Glomerular filtration rate/1.73 sq M.predicted [Volume Rate/Area] in Serum, Plasma or Blood by Creatinine-based formula (CKD-EPI) 11/30/2023 07:06:23 68 >=60 (mL/min) Final eGFR is calculated based on the CKD-EPI 2020 equation. Sodium 11/30/2023 07:06:23 140 135-146 (m mol/L) Final Potassium 11/30/2023 07:06:23 3.8 3.5-5.1 (m mol/L) Final Cl 11/30/2023 07:06:23 103 98-107 (mm ol/L) Final CO2 11/30/2023 07:06:23 26 22-32 (mmo l/L) Final Anion gap 11/30/2023 07:06:23 11 7-15 (mmol /L) Final Glucose 11/30/2023 07:06:23 176 Above high normal 70 -120 (mg/dL) Final Albumin 11/30/2023 07:06:23 4.4 3.8-5.0 (g /dL) Final AST (Aspartate aminotransferase) 11/30/2023 07:06:23 16 10-50 (U/L) Fin al Alk Phos 11/30/2023 07:06:23 98 35-130 (U/ L) Final Bilirubin, Total 11/30/2023 07:06:23 1.4 Above high no rmal <=1.2 (mg/dL) Final Calcium 11/30/2023 07:06:23 9.2 8.4-10.2 ( mg/dL) Final Protein 11/30/2023 07:06:23 6.1 6.0-8.3 (g /dL) Final ALT (Alanine aminotransferase) 11/30/2023 07:06:23 24 10-50 (U/L) Kashif corral Performing Location [facility] [place] [address] [facility] [address]
--- OUTSIDE RECORDS SUMMARY | 2024-03-19 14:47 | External Medical Summary | Summary of Care ---
Author Name Unknown Organization [facility] Address [address] [facility] [place] [address] Phone [phone] Care Team Providers Care Price Changer Name Role Phone Phong Matute PA-C Primary Care Provider [phone] Encounter Details Date Type Department Care Team (Late st Contact Info) Description 08/09/2023 Telephone OR [facility], Operating Room [facility] [address] [place] [phone] Roddy Herring, [address] [place] [phone] Allergies No known active allergiesdocumented as of this encounter (statuses as of 11/08/2023) Medications Medication Sig Dispensed Refills Start Date [...] MOUTH DAILY 90 Tablet 3 06/17/2023 Active documented as of this encounter (statuses as of 11/08/2023) Active Problems Problem Noted Date Diagnosed Date [...] as of this encounter (statuses as of 11/08/2023) Resolved Problems Problem Noted Date Diagnosed Date Resolved Date Infection of total right knee replacement 10/09/2014 10/09/2014 HTN, goal below 140/90 12/07/200504/03 Mixed dyslipidemia 05/24/2001 9 Overview: Per Lipid Taxonomy. HTN, goal below 130/80 04/10 documented as of this encounter (statuses as of 11/08/2023) Immunizations Name Administration Dates Next Due Pneumococcal [...] encounter Miscellaneous Notes * Telephone Encounter - Charlotte Ram OSA - 08/09/2023 9:01 AM EDT LM to reschedule inj that was missed from today, I need to speak with patient when he calls in. * Telephone Encounter - Alva Juárez RN - 08/09/2023 8:34 AM EDT Pt has not arrived for scheduled pain management injection with Dr. Herring scheduled at 824. Call placed to pt's cell number and message left. Pt returned phone call and states he received a phone call yesterday stating his appointment was rescheduled to the . In reviewing the chart it appears his appointment with Dr. Cope, spine surgeon, was rescheduled to 09/23 and may have been what that message was about. Pt would like to reschedule for pain injection with Dr. Herring. Dr. Herring and Charlotte notified. documented in this encounter Plan of Treatment Upcoming Encounters Date Type Department Care Team ([facility] Contact Info) Description 11/30/2023 7:10 AM EDT Laboratory Laboratory Patient Service [address] [phone] [address] 12/07/2023 7:20 AM EDT Office Visit [address] [phone] Phong Matute PA-C [address] [place] [address] 04/13/2024 8:00 AM EST Office Visit Nephrology, [place] [address] [place] [address] Torin Wright, DO [address] [place] [address] Scheduled Procedures Name Priority Associated Diagnoses Date/Ti me DESTROY LUMBAR SACRAL NERVE IMAGING SINGLE Spondylosis of lumbosacral region without myelopathy or radiculopathy DESTROY LUMBAR SACRAL NERVE IMAGING ADD'L Spondylosis of lumbosacral region without myelopathy or radiculopathy COLONOSCOPY FLEXIBLE PROXIMA L DIAGNOSTIC Recall History of colon polyps Health Maintenance Due Date Last Done Comments DISCUSS TOBACCO CESSATION (REFER TO SMARTSET #6849) 1955 Cologuard 08/12/2000 Fecal Occult Blood Test [...] filedocumented as of this encounter Care Teams Price Changer Relationship Specialty Start Date End Date Phong Matute PA-C [address] [place], [place] [address] [address] PCP - General Physician Manager Diesel 07/02/22 documented as of this encounter
--- OUTSIDE RECORDS SUMMARY | 2024-03-19 14:47 | External Medical Summary | Summary of Care ---
Author Name Unknown Organization [facility] Address [address] [place] [address] Phone [phone] Care Team Providers Care Director Enterprise Data [employer] Name Role Phone Phong Schroeder PA-C Primary Care Provider [phone] Reason for Visit * Reason Comments eRx-Medication Refill Encounter Details Date Type Department Care Team ([facility] st Contact Info) Description 03/16/2024 Refill [facility] [address] [place] [address] Phong Schroeder PA-C [address] [place] [address] Arthralgia of both knees; Chronic bilateral low back pain without sciatica Allergies No known active allergiesdocumented as of this encounter (statuses as of 03/17/2024) Medications FISH OIL 1000 MG PO CAPSIndications: Mixed dyslipidemia one pill three times a day 90 5 02/20/20 08 Active Acetaminophen-Co deine #3 300-30 MG Oral Tablet (Tylenol #3) Take by mouth 1 Tablet every 4 hours as needed for Pain, Moderate. May take 2 tablets for severe pain. 15 Tablet 1 08/30/19 22 Active Furosemide 20 MG Oral Tablet (Lasix)Indicatio ns:Edema TAKE 1 TABLET BY MOUTH DAILY 90 Tablet 3 06/17/19 24 Active Lisinopril 20 MG Oral Tablet (Prinivil)Indica tions:HTN, goal below 140/90 TAKE 2 TABLETS BY MOUTH IN THE MORNING 180 Tablet 3 06/17/19 24 Active Allopurinol 300 MG Oral Tablet (Zyloprim)Indica tions:Gout, unspecified cause, unspecified chronicity, unspecified site TAKE 1 TABLET BY MOUTH DAILY 90 Tablet 3 06/17/19 24 Active Potassium Chloride ER 10 MEQ Oral Tablet Extended Release TAKE 1 TABLET BY MOUTH DAILY 90 Tablet 3 06/17/19 24 Active Metoprolol Succinate ER 25 MG Oral Tablet Extended Release 24 Hour (toPROL XL)Indications:H TN, goal below 140/90 TAKE 1 TABLET BY MOUTH DAILY 90 Tablet 3 06/17/19 24 Active Rosuvastatin Calcium 40 MG Oral Tablet (Crestor)Indicat ions:Mixed dyslipidemia TAKE 1 TABLET BY MOUTH DAILY 90 Tablet 3 06/17/19 24 Active amLODIPine Besylate 10 MG Oral Tablet (Norvasc)Indicat ions:Essential hypertension with goal blood pressure less than 140/90 TAKE 1 TABLET BY MOUTH DAILY 90 Tablet 3 06/17/19 24 Active Spironolactone 25 MG Oral Tablet (Aldactone)Indic ations:HTN, goal below 140/90 Take 1 Tablet by mouth in the morning. 30 Tablet 11 08/27/19 24 Active Meloxicam 15 MG Oral Tablet (Mobic)Indicatio ns:Arthralgia of both knees,Chronic bilateral low back pain without sciatica TAKE 1 TABLET BY MOUTH DAILY for pain 90 Tablet 2 03/17/20 24 Active Meloxicam 15 MG Oral Tablet (Mobic)Indicatio ns:Arthralgia of both knees,Chronic bilateral low back pain without sciatica TAKE 1 TABLET BY MOUTH DAILY for pain 90 Tablet 2 06/16/19 24 024 Discontinued documented as of this encounter (statuses as of 03/17/2024) Active Problems Problem Noted Date Diagnosed Date AAA (abdominal aortic aneurysm) 04/14/2023 Overview (04/14/2023): 3.6 cm AAA noted on screening us 04/08/23 Carpal tunnel syndrome, bilateral 05/21/2021 Mixed dyslipidemia 10/10/2020 HTN, goal below 140/90 04/10/2015 Status post unicompartmental knee replacement, r ight 10/09/2014 Displacement of cervical int ervertebral disc without myelopathy 12/18/2011 BMI 35-39 ISOLATED (SEE ACTUAL BMI) 10/14/2009 Overview (10/14/2009): Per Obesity Protocol, #19 DYSLIPIDEMIA, GOAL TO BE DETERMINED 04/17/2009 Overview (04/17/2009): Per Lipid Taxonomy. Gout 01/17/2009 Edema 05/24/2001 Snoring Overview (2015): ICD-10 update of inactive term documented as of this encounter (statuses as of 03/17/2024) Resolved Problems Problem Noted Date Diagnosed Date Resolved Date Infection of total right knee replacement 10/09/2014 10/09/2014 HTN, goal below 140/90 12/07/200504/03 Mixed dyslipidemia 05/24/2001 9 Overview (04/17/2009): Per Lipid Taxonomy. HTN, goal below 130/80 04/10 documented as of this encounter (statuses as of 03/17/2024) Immunizations Name Administration Dates Next Due Pneumococcal Conjugate Vacc, 13 Valent (Prevnar) 06/05/2016 Pneumococcal Polysaccharide PPV23 (Pneumovax) 09/09/2017,03/12/2014(Deferred: Patient Refused) Seasonal Influenza Vac., MDV , IM, 0.5 mL (Fluzone) 03/11/2015,03/12/2014(Deferred: Patient Refused) Seasonal Influenza Virus Vac cine, Unspecified Formulation 01/12/2019,02/28/2018,02/27/2017,02/06,03/11/2015 Seasonal Influenza, PF, 6 M & above, IM , (FluLaval or Fluzone) 01/12/2019,02/28/2018,02/27/2017 Seasonal Influenza, Quadriva lent Hd (Fluzone Hd) 02/23/2022 Seasonal Influenza, Quadriva lent, No Preserve, IM 02/07/2016 Seasonal Influenza, Recombin ant, RIV4, PF, (Flublock) 02/04/2020 Seasonal Influenza, Trivalen t, Adjuvanted, 65+ YRS, PF, (Fluad) 02/13/2021 TD - Tetanus/Diptheria (ADULT) 08/28/2005 TDAP, [...] Assigned at Male 01/12/2019 10:52 AM EDT Legal Sex Male 7:03 AM EST Gender Identity Male 01/12/2019 10:52 AM EDT Sexual Orientation Straight 02/23/2022 1: 25 PM EDT Occupation Industry Job Start Date Job End Date 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[employer]) Not on file Not on file Not on file documented as of this encounter Miscellaneous Notes * Telephone Encounter - Mya Leggett RPh - 03/17/2024 1:06 PM ESTSigned Prescriptions: Disp Refills Meloxicam 15 MG Oral Tablet (Mobic) 90 Tab*2 Sig: TAKE 1 TABLET BY MOUTH DAILY for painAuthorizing Provider: PHONG SCHROEDER User: MYA LEGGETT----- documented in this encounter Plan of Treatment Upcoming Encounters Date Type Department Care Team (Late st Contact Info) Description 04/13/2024 8:00 AM EST Office Visit Nephrology, [facility] [address] [address] Torin Wright, DO [address] [facility] [place] [address] Scheduled Procedures Name Priority Associated Diagnoses Date/Ti me COLONOSCOPY FLEXIBLE PROXIMAL DIAGNOSTIC Recall History of colon polyps Health Maintenance Due Date Last Done Comments DISCUSS TOBACCO CESSATION (REFER TO SMARTSET #6833) 1955 Cologuard 08/12/2000 Fecal Occult Blood Test 08/12/2000 Sigmoidoscopy 08/12/2000 DTap/Tdap Vaccines (2 - Td or Tdap) 12/22/2020 12/22/2010, 08/28/2005 Adult Wellness Visit 08/12/2021 Pneumococcal Vaccine: 65+ Years (3 of 3 - PPSV23 or PCV20) 09/09/2022 09/09/2017, 06/05/2016 Depression Screening 02/23/2023 02/23/2022 COVID-19 Vaccine ( season) 2024 Influenza Vaccine (FLU shot) (#1) 2024 02/23/2022, [...] as of this encounter Visit Diagnoses Diagnosis Arthralgia of both knees Chronic bilateral low back pain without sciatica documented in this encounter Care Teams Director Enterprise Data Architecture Relationship Specialty Start Date End Date Phong Schroeder PA-C [address] [place] [id number] PCP - General Physician Lock Assembler 07/02/22 documented as of this encounter
--- NOTE | 2024-03-19 16:01 | CT Scan Report ---
EXAM: CT Head Without Intravenous Contrast INDICATION: Syncopal episode. Anticoagulated. TECHNIQUE: Axial computed tomography images of the head/brain without intravenous contrast. Sagittal and/or coronal reformats are provided. Sagittal and coronal reformatted images were created and reviewed. This CT exam was performed using one or more of the following dose reduction techniques: automated exposure control, adjustment of the mA and/or kV according to patient size, and/or use of iterative reconstruction technique. COMPARISON: No relevant prior studies available. FINDINGS: Limitations: None. Brain and extra-axial spaces: There is age appropriate cortical atrophy and chronic ischemic periventricular white matter hypodensity. No acute infarct, hemorrhage or mass noted. Bones/joints: No acute changes. Soft tissues: No significant abnormality noted. Vasculature: Intracranial atherosclerotic calcification noted. Sinuses: No layering fluid in the visualized portions of the paranasal sinuses. Mastoid air cells: No mastoid effusion. Orbits: No significant abnormality noted. IMPRESSION: Cerebral atrophy. No acute changes. ACT 112: Negative or not required by law. Electronically signed by Gloria Gurrola 03-19-2024 4:01 PM
[2024-03-19 16:10] LABS: Albumin Globulin Ratio 1.8 (0.9-2); Albumin Level 4.5 gm/dl (3.4-5.0); BUN Creatinine Ratio 17.1 (10-20); Bilirubin,Total 1.5 mg/dl (0.2-1.0); Calcium 9.8 mg/dl (8.6-10.3); Creatinine Clr Calc Pharmacy 59.1 ml/min; Globulin 2.5 gm/dl (2.5-4.0); Magnesium 2.2 mg/dl (1.7-2.4); Potassium 4.5 mmol/L (3.5-5.1)
--- NOTE | 2024-03-19 16:10 | XRay Report ---
EXAM: Radiograph of the Chest 1 View INDICATION: Syncope. TECHNIQUE: Frontal view of the chest. COMPARISON: 10/10/2019 FINDINGS: Lungs and pleural spaces: Stable mild hyperinflation and minimal basilar scarring. No consolidation or pulmonary edema. No pleural effusion or pneumothorax. Heart: Shape and configuration within normal limits allowing for technique. Mediastinum: Normal contour. Bones/joints: Degenerative changes noted throughout the spine. No acute osseous abnormality seen. Soft tissues: No abnormality noted. No radiopaque foreign body noted. Upper abdomen: No abnormality noted. IMPRESSION: Stable chronic changes. No acute disease. ACT 112: Negative or not required by law. Electronically signed by Gloria Gurrola 03-19-2024 4:05 PM
[2024-03-19 16:14] LABS: Basophils # (auto) 0.06 K/uL (0.00-0.20); Basophils % (auto) 0.5 %; Eosinophils # (auto) 0.02 K/uL (0.00-0.50); Eosinophils % (auto) 0.2 %; Hematocrit (blood only) 53.5 % (42.0-52.0); Hemoglobin 17.7 g/dl (14.0-18.0); Immature Granulocytes # (auto) 0.04 K/uL (0.01-0.20); Immature Granulocytes % (auto) 0.3 %; Lymphocytes # (auto) 1.18 K/uL (1.20-3.40); Lymphocytes % (auto) 10.3 %; Mean Corpuscular Hemoglobin 30.2 pg (25.0-34.0); Mean Corpuscular Hgb Conc 33.1 g/dL (32.0-36.0); Mean Corpuscular Volume 91.3 fL (80.0-100.0); Mean Platelet Volume 10.7 fL (9.4-12.4); Monocytes # (auto) 0.65 K/uL (0.11-0.59); Monocytes % (auto) 5.7 %; Neutrophils # (auto) 9.51 K/uL (1.40-6.50); Platelet Count 167 K/uL (130-400); RDW Coefficient of Variation 13.7 % (11.5-14.5); RDW Standard Deviation 46.5 fL (36.4-46.3); Red Blood Count 5.86 M/uL (4.70-6.10); White Blood Count 11.46 K/ul (4.8-10.8)
[2024-03-19 16:16] LABS: Troponin I High Sensitivity 6.6 pg/ml (0-20)
[2024-03-19 16:25] LABS: Thyroid Stimulating Hormone 1.269 uIu/ml (0.300-4.500)
[2024-03-19 17:29] LABS: Prothrombin Time 10.7 Seconds (9.0-12.0)
[2024-03-19 17:58] LABS: Appearance Urine Clear (Clear); Bacteria Urine Automated None Seen (None Seen); Bilirubin Urine Negative (Negative); Blood Urine Negative (Negative); Cast Urine Automated 0-2 /lpf (0-2); Color Urine Yellow; Epithelial Cell Urine Auto 0-2 /hpf (0-2); Glucose Urine UA Trace (Negative); Ketones Urine Negative (Negative); Leukocyte Esterase Urine Negative (Negative); Nitrite Urine Negative (Negative); Protein Urine 1+ (Negative); RBC Urine Automated 0-2 /hpf (0-2); Specific Gravity Urine 1.018 (1.000-1.030); Urobilinogen Urine Negative (Negative); WBC Urine Automated 0-5 /hpf (0-5)
--- NOTE | 2024-03-19 18:29 | History & Physical Report ---
Date of Service March 19, 2024 Assessment & Plan (1) Syncope, cardiogenic: (2) Sinus pause: (3) Hypertension, uncontrolled: (4) Suspected sleep apnea: (5) Failed back syndrome: Plan Patient presents to the emergency room with acute syncopal event, sinus pause noted in ED with some mild symptoms, highly suspicious for cardiogenic syncope. Patient requires hospital level care for ongoing monitoring he is at high risk for adverse event if he is not monitored in the hospital. Requires monitoring, laboratory testing, ongoing evaluation and specialty consultation Admit to the hospital on a telemetry unit Consult cardiology Echocardiogram Nocturnal pulse oximetry Hold metoprolol Increase lisinopril for blood pressure control Check tickborne diseases panel External pacer pads in place with paced external pacemaker at bedside if needed Atropine as needed for severe symptomatic bradycardia Family at bedside updated the plan of care History of Present Illness Chief Complaint: Passed out in bathroom Primary Care Provider: Gabriel Zaragoza MD Patient is 68-year-old gentleman with significant history of difficult to control hypertension. Presented to the emergency room today after having a syncopal event and falling in the tub in the bathroom. Patient did not complain of any significant injury. Denied any chest pain or shortness of breath. In the emergency room laboratory workup was unremarkable, however on telemetry monitoring he had a greater than 5-second sinus pause. He felt a little bit weak with this but otherwise no chest pain shortness of breath or near syncopal symptoms. With these findings patient was referred to our service for further evaluation. Time my evaluation patient is asymptomatic. He reports has been feeling well. However, his at the bedside states that on Wednesday he just seems to be a little bit off. On further questioning he states that he just really felt fatigued. Patient reports that he was getting up and going into the bathroom when he had the syncopal event. He denies any chest pain, no shortness of breath. No recent fever or chills. No recent URI symptoms. No nausea or vomiting. No diaphoresis. No new problems with his bowels or bladder. No significant joint swelling. 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 Has not noticed any changes in his ability to complete his work. Never had any symptoms like this previous. Denies any palpitations or feeling as if his heart skipping. He smokes a pipe intermittently denies any significant alcohol use. He states that there is been no recent changes in his medications Allergies Allergy/AdvReac Type Severity Reaction Status Date / Time No Known Allergies Allergy Unknown Verified 03/19/24 17:13 Home Medications Medication Instructions Recorded Confirmed Type amlodipine 10 mg tablet (Norvasc) 10 mg PO QAM 12/07/18 03/19/24 History furosemide 20 mg tablet (Lasix) 20 mg PO QAM 12/07/18 03/19/24 History lisinopril 20 mg tablet 20 mg PO QAM 12/07/18 03/19/24 History potassium chloride 10 mEq 10 meq PO QAM 12/07/18 03/19/24 History capsule,extended release rosuvastatin 40 mg tablet (Crestor) 40 mg PO QAM 12/07/18 03/19/24 History metoprolol succinate 25 mg 25 mg PO DAILY 11/03/20 03/19/24 History tablet,extended release 24 hr oxycodone 5 mg tablet 5 mg PO Q4H PRN pain #15 tabs 11/03/20 03/19/24 Rx allopurinol 300 mg tablet 300 mg PO HS 03/19/24 03/19/24 History meloxicam 15 mg tablet 15 mg PO QAM 03/19/24 03/19/24 History spironolactone 25 mg tablet 25 mg PO QAM 03/19/24 03/19/24 History Past Med/Surg History Problem List (Updated 03/19/24 @ 18:36 by Marco Bernal DO) Sinus pause Failed back syndrome Suspected sleep apnea Hypertension, uncontrolled Syncope, cardiogenic Sleep apnea, unspecified Spondylisthesis Lumbar facet joint syndrome (Chronic) Lumbar radicular pain (Chronic) Lumbar spinal stenosis (Chronic) Hyperlipidemia (Chronic) Gout (Chronic) HTN (hypertension) (Chronic) Neck strain (Chronic) Fall (Chronic) Shoulder contusion (Chronic) Effusion, left knee (Chronic) Internal derangement of left knee (Chronic) Left knee sprain (Chronic) Tick bite (Chronic) Social History Smoking Status: Current every day smoker Tobacco Type: Cigarettes Hx Alcohol Use: No Hx Substance Use: No Preferred Language: Luxembourgish Communication Ability: Effective Visual Impairment: No Limitations Hearing Ability: Normal 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 Sclera clear Neck: Soft, no adenopathy Lungs: Clear to auscultation, decreased, no wheezes rales or rhonchi CV: S1-S2, regular, bradycardic, no murmur Abdomen: Soft, nontender, nondistended Extremities: No significant edema Musculoskeletal: No significant joint tenderness Neuro: No focal deficits Psych: Cooperative, normal mood Results & Data Results & Data Vital Signs (Past 12 Hours) Vital Signs Temp Pulse Pulse Resp BP BP Pulse Ox 03/19/24 16:42 55 L 16 156/93 H 94 03/19/24 16:23 56 L 18 98 03/19/24 15:26 51 L 03/19/24 14:56 37 C 59 L 15 169/79 H 95 O2 Del Method 03/19/24 16:42 Room Air 03/19/24 16:23 Room Air 03/19/24 15:26 03/19/24 14:56 Room Air Diagnostic Findings Reviewed imaging, laboratory and diagnostic studies. Pertinent findings as below. Personally reviewed chest x-ray, no acute cardiopulmonary abnormalities Head CT no acute abnormalities some mild cerebral atrophy Personally reviewed EKG sinus bradycardia, no acute ST-T wave changes Personally reviewed telemetry strip greater than 5-second sinus pause Urinalysis unremarkable TSH 1.2 Troponin 6.6 Electrolytes within normal range WBCs 11.4 Hemoglobin 17.7 Code Status & VTE Plan VTE Prophylaxis Plan VTE Prophylaxis will be ordered: Yes
--- NOTE | 2024-03-19 18:40 | Emergency Department Note ---
Impression & Plan Syncope, cardiogenic, Sinus pause ED Provider Note NAME: MALA LIN AGE: 68 SEX: M : 1955 ARRIVES VIA: Walk-In INFORMANT: Patient, ED PROVIDER(S): Annie Aparicio MD CHIEF COMPLAINT: Syncope HPI: This is a 68-year-old male presenting for syncope patient states he was eating lunch when he went to stand up and walk to the bathroom. He notes he just passed out but does not member feeling like he was going to pass out. He had no previous symptoms. There is remember the events preceding or after. He woke up in the. No chest pain or shortness of breath. No nausea vomiting or diarrhea. He does feel significantly weak today. ROS: See above HPI for pertinent positives & negatives. A total of 10 systems reviewed and were otherwise negative. PAST MEDICAL HISTORY: See Below PAST SURGICAL HISTORY: See Below FAMILY HISTORY: See Below SOCIAL HISTORY: See Below HOME MEDICATIONS: See Below ALLERGIES: See Below VITALS: See Below PHYSICAL EXAMINATION: General: resting comfortably in no acute distress Head: Normocephalic and atraumatic Eyes: Normal inspection, extraocular muscles intact Ear, nose, throat: Normal external exam Neck: Normal range of motion Respiratory: lungs clear to auscultation bilaterally Cardiovascular: Regular rate/rhythm, no murmur GI: soft, nontender, no guarding or rebound Extremities: nontender, moves all extremities Neuro: The patient awake and alert, appropriately conversive, no focal deficits, symmetric faces Skin: Warm, dry, and intact MEDICAL DECISION MAKING: This is a 68-year-old male present for syncope. Patient had no significant prodrome prior to the syncope. Consider quadrant of syncope, vasovagal syncope, orthostatic syncope, ACS, PE. -Will do CT of the head to rule out traumatic injury due to this fall -CT of the head currently negative -Bloodwork is reviewed showing no significant leukocytosis, anemia, electrolyte or creatinine abnormality -The orthodontic technician assistant recorder an episode of sinus pause for over 5 seconds. Patient felt lightheaded and this time. Likely cause the patient's current syncope. -Discussed care with Dr. Fritz for admission -Patient another episode of sinus pause for over 5 seconds at a time. This time patient almost passed out as per self-report -ECG independently interpreted by me with sinus bradycardia rate of 54 normal VA, normal QRS, normal QTc, no ST segment elevations consistent with STEMI criteria -Patient is placed on pads with crash cart in room Differential diagnosis: See above ER treatment provided: See below Independent History obtained from: Diagnostics interpreted by me: ECG: See above Cardiac Monitoring: An order was placed for continuous cardiac monitoring. The monitor shows a rate of 55 with sinus bradycardia rhythm. Laboratory studies: As stated above and show below. Imaging studies: See below. Past Med/Surg History Problem List (Updated 03/19/24 @ 18:53 by Annie Aparicio MD) Sinus pause (Acute) Syncope, cardiogenic (Acute) Sinus pause Failed back syndrome Suspected sleep apnea Hypertension, uncontrolled Syncope, cardiogenic Sleep apnea, unspecified Spondylisthesis Lumbar facet joint syndrome (Chronic) Lumbar radicular pain (Chronic) Lumbar spinal stenosis (Chronic) Hyperlipidemia (Chronic) Gout (Chronic) HTN (hypertension) (Chronic) Neck strain (Chronic) Fall (Chronic) Shoulder contusion (Chronic) Effusion, left knee (Chronic) Internal derangement of left knee (Chronic) Left knee sprain (Chronic) Tick bite (Chronic) Social History Smoking Status: Current every day smoker Tobacco Type: Cigarettes Hx Alcohol Use: No Hx Substance Use: No Preferred Language: Sinhala Communication Ability: Effective Visual Impairment: No Limitations Hearing Ability: Normal Clerk Operator Required: No marital status: Current Living Situation: Spouse current occupational status: employed Feels Safe at Home: Yes Allergies Allergies Allergy/AdvReac Type Severity Reaction Status Date / Time No Known Allergies Allergy Unknown Verified 03/19/24 17:13 Home Meds Home Medications Medication Instructions Recorded Confirmed amlodipine 10 mg tablet (Norvasc) 10 mg PO QAM 12/07/18 03/19/24 furosemide 20 mg tablet (Lasix) 20 mg PO QAM 12/07/18 03/19/24 lisinopril 20 mg tablet 20 mg PO QAM 12/07/18 03/19/24 potassium chloride 10 mEq 10 meq PO QAM 12/07/18 03/19/24 capsule,extended release rosuvastatin 40 mg tablet (Crestor) 40 mg PO QAM 12/07/18 03/19/24 metoprolol succinate 25 mg 25 mg PO DAILY 11/03/20 03/19/24 tablet,extended release 24 hr allopurinol 300 mg tablet 300 mg PO HS 03/19/24 03/19/24 meloxicam 15 mg tablet 15 mg PO QAM 03/19/24 03/19/24 spironolactone 25 mg tablet 25 mg PO QAM 03/19/24 03/19/24 Previous Rx's Medication Instructions Recorded oxycodone 5 mg tablet 5 mg PO Q4H PRN pain #15 tabs 11/03/20 Results & Data (ED) Vital Signs Vital Signs - 24 hr 03/19/24 14:56 03/19/24 15:26 03/19/24 16:23 Temperature 37 C Temperature Source Skin Pulse Rate 59 L 51 L 56 L Pulse Rate [Left Brachial] Pulse Rhythm Regular Pulse Rhythm [Left Brachial] Pulse Strength [Left Brachial] Respiratory Rate 15 18 Respiratory Effort / Characteristics Non-Labored Spontaneous Respiratory Depth Normal Respiratory Pattern Blood Pressure 169/79 H Blood Pressure [Left Arm] Blood Pressure Mean 109 Blood Pressure Mean [Left Arm] Blood Pressure Position [Left Arm] Pulse Oximetry 95 98 Oxygen Delivery Method Room Air Room Air Sepsis Recent Fever Within 48 Hours No Sepsis New/Unexplained Change in Mental Status N/A Sepsis Action Taken by Nursing No Action Required 03/19/24 16:42 03/19/24 18:00 Temperature Temperature Source Pulse Rate Pulse Rate [Left Brachial] 55 L 55 L Pulse Rhythm Pulse Rhythm [Left Brachial] Regular Regular Pulse Strength [Left Brachial] Normal Normal Respiratory Rate 16 20 Respiratory Effort / Characteristics Non-Labored Non-Labored Respiratory Depth Normal Normal Respiratory Pattern Regular Regular Blood Pressure Blood Pressure [Left Arm] 156/93 H 147/79 H Blood Pressure Mean Blood Pressure Mean [Left Arm] 114 101 Blood Pressure Position [Left Arm] Sitting Sitting Pulse Oximetry 94 98 Oxygen Delivery Method Room Air Room Air Sepsis Recent Fever Within 48 Hours Sepsis New/Unexplained Change in Mental Status Sepsis Action Taken by Nursing Laboratory Data 03/19/24 15:06 03/19/24 15:06 Lab Results 03/19/24 03/19/24 03/19/24 Range/Units 15:06 16:46 17:41 WBC 11.46 H (4.8-10.8) K/ul RBC 5.86 (4.70-6.10) M/uL Hgb 17.7 (14.0-18.0) g/dl Hct 53.5 H (42.0-52.0) % MCV 91.3 (80.0-100.0) fL MCH 30.2 (25.0-34.0) pg MCHC 33.1 (32.0-36.0) g/dL RDW Std Deviation 46.5 H (36.4-46.3) fL RDW Coeff of [place]ie 13.7 (11.5-14.5) % Plt Count 167 (130-400) K/uL MPV 10.7 (9.4-12.4) fL Immature Gran % (Auto) 0.3 % Neut % (Auto) 83.0 % Lymph % (Auto) 10.3 % Bollinger % (Auto) 5.7 % Eos % (Auto) 0.2 % Baso % (Auto) 0.5 % Neut # (Auto) 9.51 H (1.40-6.50) K/uL Lymph # (Auto) 1.18 L (1.20-3.40) K/uL Bollinger # (Auto) 0.65 H (0.11-0.59) K/uL Eos # (Auto) 0.02 (0.00-0.50) K/uL Baso # (Auto) 0.06 (0.00-0.20) K/uL Immature Gran # (Auto) 0.04 (0.01-0.20) K/uL PT Cancelled 10.7 INR Cancelled 1.0 Sodium 145 (136-145) mmol/L Potassium 4.5 (3.5-5.1) mmol/L Chloride 108 H (98-107) mmol/L Carbon Dioxide 30 (21-32) mmol/L Anion Gap 7 (3-11) BUN 22 (6-23) mg/dl Creatinine 1.29 (0.6-1.4) mg/dl Est Cr Clr Drug Dosing 59.1 ml/min eGFR 60.40 BUN/Creatinine Ratio 17.1 (10-20) Glucose 149 H (70-99(Fasting)) mg/dl Calcium 9.8 (8.6-10.3) mg/dl Magnesium 2.2 (1.7-2.4) mg/dl Total Bilirubin 1.5 H (0.2-1.0) mg/dl AST 19 (13-39) U/L ALT 22 (7-52) U/L Alkaline Phosphatase 86 (34-104) U/L Troponin I High Sens 6.6 (0-20) pg/ml Total Protein 7.0 (6.0-8.3) gm/dl Albumin 4.5 (3.4-5.0) gm/dl Globulin 2.5 (2.5-4.0) gm/dl Albumin/Globulin Ratio 1.8 (0.9-2) Lipase 48 (11-82) U/L TSH 1.269 (0.300-4.500) uIu/ml Urine Color Yellow Urine Appearance Clear (Clear) Urine pH 8.0 H (4.5-7.5) Ur Specific [place] 1.018 (1.000-1.030) Urine Protein 1+ H (Negative) Urine Glucose (UA) Trace H (Negative) Urine Ketones Negative (Negative) Urine Blood Negative (Negative) Urine Nitrite Negative (Negative) Urine Bilirubin Negative (Negative) Urine Urobilinogen Negative (Negative) Ur Leukocyte Esterase Negative (Negative) Urine WBC (Auto) 0-5 (0-5) /hpf Urine RBC (Auto) 0-2 (0-2) /hpf U Hyaline Cast (Auto) 0-2 (0-2) /lpf U Epithel Cells (Auto) 0-2 (0-2) /hpf Urine Bacteria (Auto) None Seen (None Seen) Imaging Data Radiologist's Impression: Chest X-Ray 03/19/24 15:16 EXAM: Radiograph of the Chest 1 View INDICATION: Syncope. TECHNIQUE: Frontal view of the chest. COMPARISON: 10/10/2019 FINDINGS: Lungs and pleural spaces: Stable mild hyperinflation and minimal basilar scarring. No consolidation or pulmonary edema. No pleural effusion or pneumothorax. Heart: Shape and configuration within normal limits allowing for technique. Mediastinum: Normal contour. Bones/joints: Degenerative changes noted throughout the spine. No acute osseous abnormality seen. Soft tissues: No abnormality noted. No radiopaque foreign body noted. Upper abdomen: No abnormality noted. IMPRESSION: Stable chronic changes. No acute disease. ACT 112: Negative or not required by law. Electronically signed by Gloria Gurrola 03-19-2024 4:[address] 03/19/24 15:32 EXAM: CT Head Without Intravenous Contrast INDICATION: Syncopal episode. Anticoagulated. TECHNIQUE: Axial computed tomography images of the head/brain without intravenous contrast. Sagittal and/or coronal reformats are provided. Sagittal and coronal reformatted images were created and reviewed. This CT exam was performed using one or more of the following dose reduction techniques: automated exposure control, adjustment of the mA and/or kV according to patient size, and/or use of iterative reconstruction technique. COMPARISON: No relevant prior studies available. FINDINGS: Limitations: None. Brain and extra-axial spaces: There is age appropriate cortical atrophy and chronic ischemic periventricular white matter hypodensity. No acute infarct, hemorrhage or mass noted. Bones/joints: No acute changes. Soft tissues: No significant abnormality noted. Vasculature: Intracranial atherosclerotic calcification noted. Sinuses: No layering fluid in the visualized portions of the paranasal sinuses. Mastoid air cells: No mastoid effusion. Orbits: No significant abnormality noted. IMPRESSION: Cerebral atrophy. No acute changes. ACT 112: Negative or not required by law. Electronically signed by Gloria Gurrola 03-19-2024 4:01 PM Discharge Plan Visit Data Chief Complaint: Back Injury/Pain Stated Complaint: BACK INJURY, SYNCOPE ED Provider: Annie Aparicio Discharge Problem: Syncope, cardiogenic, Sinus pause Forms Stand Alone Forms: [facility] Stream5 Prescriptions Prescriptions: No Action amlodipine [Norvasc] 10 mg tablet 10 mg PO QAM furosemide [Lasix] 20 mg tablet 20 mg PO QAM lisinopril 20 mg tablet 20 mg PO QAM potassium chloride 10 mEq capsule, extended release 10 meq PO QAM rosuvastatin [Crestor] 40 mg tablet 40 mg PO QAM metoprolol succinate 25 mg tablet extended release 24 hr 25 mg PO DAILY oxycodone 5 mg tablet 5 mg PO Q4H PRN (Reason: pain) Qty: 15 0RF Rx Instructions: Initial Treatment meloxicam 15 mg tablet 15 mg PO QAM spironolactone 25 mg tablet 25 mg PO QAM allopurinol 300 mg tablet 300 mg PO HS Referrals Referrals: Gabriel Zaragoza MD [Primary Care Provider] -
[2024-03-19 19:40] LABS: Adenovirus PCR Not Detected (NotDetected); Bordetella parapertussis PCR Not Detected (NotDetected); Bordetella pertussis PCR Not Detected (NotDetected); Chlamydia pneumoniae PCR Not Detected (NotDetected); Coronavirus 229E PCR Not Detected (NotDetected); Coronavirus CoV-2 (COVID19)PCR Not Detected (NotDetected); Coronavirus HKU1 PCR Not Detected (NotDetected); Coronavirus NL63 PCR Not Detected (NotDetected); Coronavirus OC43PCR Not Detected (NotDetected); Human Metapneumovirus PCR Not Detected (NotDetected); Influenza A PCR Not Detected (NotDetected); Influenza B PCR Not Detected (NotDetected); Mycoplasma pneumoniae PCR Not Detected (NotDetected); Parainfluenza Virus 1 PCR Not Detected (NotDetected); Parainfluenza Virus 2 PCR Not Detected (NotDetected); Parainfluenza Virus 3 PCR Not Detected (NotDetected); Parainfluenza Virus 4 PCR Not Detected (NotDetected); Respiratory Syncytial VirusPCR Not Detected (NotDetected); Rhinovirus/Enterovirus PCR Not Detected (NotDetected)
[2024-03-19] MEDS ORDERED: ALUMINUM/MAGNESIUM SUSP 30 ML UDC PO PRN (21:13)
[2024-03-19] MEDS ORDERED: POLYETHYLENE (MIRALAX) 17 GM PACK PO PRN (21:13)
[2024-03-19] MEDS ORDERED: ACETAMINOPHEN 325 MG TAB PO PRN (21:13)
[2024-03-19] MEDS ORDERED: ATROPINE SULFATE 0.1 MG/ML 5ML SYR IV PRN (21:13)
[2024-03-19] MEDS ORDERED: oxyCODONE HCL IR 5 MG TAB (IMMEDIATE RELEASE) PO PRN (21:13)
[2024-03-19] MEDS ORDERED: ONDANSETRON INJ 2 MG/ML 2 ML VIAL IV PRN (21:13)
[2024-03-19] MEDS ORDERED: ATROPINE SULFATE 0.1 MG/ML 10ML SYR IV PRN (21:20)
--- NOTE | 2024-03-19 21:38 | Critical Care Consultation ---
Date of Consultation March 19, 2024 Assessment & Plan (1) Syncope, cardiogenic: Impression: 68-year-old male presents to the ICU following cardiogenic syncope in which he appears to be having long sinus pauses greater than 5 seconds. He is not requiring external pacing or dopamine drip at this time but was admitted to ICU for monitoring. Neuro - Syncopal eventappears to be cardiogenic. CT head negative for acute intracranial findings. Otherwise neurologically intact. See treatment below Cardiac - Sinus pauseunsure of etiology at this time. Currently sinus bradycardia and hemodynamically stable on monitor -He denies tick bites and Lyme panel negative. -He does report taking metoprolol this morning as prescribed. Will hold for now. Okay to continue amlodipine and lisinopril as he is currently hypertensive - No chest pain. EKG without ST elevation. Troponins within normal limits. Unlikely ACS. - Pacer pads currently on patient, atropine at bedside. Continuous monitoring on telemetry - Obtain TTE - Cardiology consulted. Will follow-up recommendations HTNMTP on hold. Continue amlodipine and lisinopril HLDcontinue statin Respiratory - No history of pulmonary disease. Currently maintaining oxygen saturations on room air. Continuous monitoring pulse ox GI - N.p.o. for now RENAL/LYTES - Creatinine within normal limits. Monitor routine BMPs and replete electrolytes as indicated - Strict I's and O's ENDO - TSH within normal limits No history of diabetes. ICU hyperglycemic protocol Goutcontinue allopurinol HEME - H&H stable, monitor routine CBC ID - No indication for infectious process at this time. Trend fever curve LINES/IV ACCESS - Peripheral IVs DVT PROPHYLAXIS - SCDs Thank you for allowing us to participate in the care of this patient. Please refer to my attending physician's documentation for any further recommendations. (2) Sinus pause: (3) Hypertension, uncontrolled: (4) Hyperlipidemia: (5) Gout: History of Present Illness Attending Physician: Marco Bernal DO History of Present Illness 68-year-old male with past medical history of HTN, HLD, gout, lumbar stenosis presents to the ICU following episode of syncope earlier today in which the patient lost consciousness and fell into the bathtub at home. He presented to the emergency department and was found to have bradycardia with episodes of long sinus pauses greater than 5 seconds. He denies any trauma from fall earlier and CT head was negative for acute intracranial findings. EKG showed sinus bradycardia, no ST elevations. Heart rate is currently in the 50s and he is hemodynamically stable. Pacer pads were placed on the patient in the emergency department, and he has not required subcutaneous pacing at this point. Patient does deny recent tick bite, and Lyme panel negative. He does take metoprolol daily which she took this morning. He denies any chest pain or shortness of breath , And troponins were within normal limits. Patient was admitted to ICU, and will undergo close monitoring overnight. If remains stable can likely downgrade in a.m. Allergies Allergy/AdvReac Type Severity Reaction Status Date / Time No Known Allergies Allergy Unknown Verified 03/19/24 17:13 Home Medications Medication Instructions Recorded Confirmed Type amlodipine 10 mg tablet (Norvasc) 10 mg PO QAM 12/07/18 03/19/24 History furosemide 20 mg tablet (Lasix) 20 mg PO QAM 12/07/18 03/19/24 History lisinopril 20 mg tablet 20 mg PO QAM 12/07/18 03/19/24 History potassium chloride 10 mEq 10 meq PO QAM 12/07/18 03/19/24 History capsule,extended release rosuvastatin 40 mg tablet (Crestor) 40 mg PO QAM 12/07/18 03/19/24 History metoprolol succinate 25 mg 25 mg PO DAILY 11/03/20 03/19/24 History tablet,extended release 24 hr oxycodone 5 mg tablet 5 mg PO Q4H PRN pain #15 tabs 11/03/20 03/19/24 Rx allopurinol 300 mg tablet 300 mg PO HS 03/19/24 03/19/24 History meloxicam 15 mg tablet 15 mg PO QAM 03/19/24 03/19/24 History spironolactone 25 mg tablet 25 mg PO QAM 03/19/24 03/19/24 History Patient History Social History Smoking Status: Current some day smoker Tobacco Type: Pipe Tobacco Cessation Education Requested by Patient: No Hx Alcohol Use: Yes Alcohol type: beer Hx Substance Use: No Preferred Language: Khmer Communication Ability: Effective Visual Impairment: No Limitations Hearing Ability: Normal Litigator Required: No Beliefs That Will Affect Care: None marital status: Current Living Situation: Spouse current occupational status: employed Other Information That Helps Us Care for You: No Feels Safe at Home: Yes Safety Concerns: Feels Safe At This Time Assistive Devices: Denture - Upper, Denture - Lower and Glasses Review of Systems Review of Systems: Patient reports 1 episode of loss of consciousness earlier this evening which she passed out and fell into the bathtub but denies trauma. He denies headache, dizziness, changes in vision, weakness or numbness, changes in gait. He denies recent illness or fevers, tick bites, rashes, sore throat, cough or congestion, shortness of breath, chest pain, abdominal pain, nausea vomiting or diarrhea, swelling in hands or feet. Physical Exam Constitutional: cooperative and comfortable Eyes: PERRL, conjunctivae normal, anicteric sclerae ENMT: external ear and nose normal, oropharynx normal Neck: trachea midline, no thyromegaly Respiratory: normal respiratory effort, lungs clear to auscultation Cardiovascular: RRR, no murmur, no edema Heart Sounds: normal S1 and normal S2; no murmur Extremities: no edema Gastrointestinal (Abdomen): normal bowel sounds, soft, nontender, no hepatosplenomegaly Musculoskeletal: no cyanosis or clubbing, extremities motor strength 5/5 Skin: no rashes, warm and dry Neurologic: PERRL, EOMI, accommodation nl, no face palsy, no dysarthria Psychiatric: A+Ox3, euthymic affect Results & Data Results & Data Vital Signs (Past 12 Hours) Vital Signs Temp Pulse Pulse Resp BP BP BP 03/19/24 20:45 36.6 C 56 L 16 173/89 H 03/19/24 20:00 53 L 17 149/91 H 03/19/24 19:42 68 03/19/24 19:37 0 L 03/19/24 19:27 54 L 17 151/85 H 03/19/24 18:00 55 L 20 147/79 H 03/19/24 16:42 55 L 16 156/93 H 03/19/24 16:23 56 L 18 03/19/24 15:26 51 L 03/19/24 14:56 37 C 59 L 15 169/79 H Pulse Ox O2 Del Method 03/19/24 20:45 91 Room Air 03/19/24 20:00 95 03/19/24 19:42 03/19/24 19:37 03/19/24 19:27 96 03/19/24 18:00 98 Room Air 03/19/24 16:42 94 Room Air 03/19/24 16:23 98 Room Air 03/19/24 15:26 03/19/24 14:56 95 Room Air Coding Level of Care Code 74135 IN/OBS CONSULT LVL 3,45M Diagnoses Syncope, cardiogenic R55 Sinus pause I45.5 Hypertension, uncontrolled I10 Hyperlipidemia E78.5 Gout M10.9 Time Spent (min) 47
[2024-03-19] MEDS: ENOXAPARIN INJ 40 MG/0.4 ML SYR SQ SCH (22:13)
[2024-03-19] MEDS: allopurinoL 300 MG TAB PO SCH (22:13)
[2024-03-19 22:21] LABS: Troponin I High Sensitivity 4.9 pg/ml (0-20)
[2024-03-19 22:31] LABS: Thyroid Stimulating Hormone 0.95 uIu/ml (0.300-4.500)
[2024-03-20 04:48] LABS: Basophils # (auto) 0.05 K/uL (0.00-0.20); Basophils % (auto) 0.4 %; Eosinophils # (auto) 0.04 K/uL (0.00-0.50); Eosinophils % (auto) 0.3 %; Hematocrit (blood only) 50.4 % (42.0-52.0); Hemoglobin 16.8 g/dl (14.0-18.0); Immature Granulocytes # (auto) 0.03 K/uL (0.01-0.20); Immature Granulocytes % (auto) 0.3 %; Lymphocytes # (auto) 1.49 K/uL (1.20-3.40); Lymphocytes % (auto) 12.9 %; Mean Corpuscular Hemoglobin 30.2 pg (25.0-34.0); Mean Corpuscular Hgb Conc 33.3 g/dL (32.0-36.0); Mean Corpuscular Volume 90.6 fL (80.0-100.0); Mean Platelet Volume 10.3 fL (9.4-12.4); Monocytes % (auto) 6.1 %; Neutrophils # (auto) 9.23 K/uL (1.40-6.50); Platelet Count 150 K/uL (130-400); RDW Coefficient of Variation 13.6 % (11.5-14.5); RDW Standard Deviation 45.1 fL (36.4-46.3); Red Blood Count 5.56 M/uL (4.70-6.10); White Blood Count 11.54 K/ul (4.8-10.8)
[2024-03-20 05:08] LABS: BUN Creatinine Ratio 19.4 (10-20); Calcium 9.3 mg/dl (8.6-10.3); Magnesium 2.1 mg/dl (1.7-2.4); Phosphorus 2.2 mg/dl (2.5-4.9); Potassium 3.8 mmol/L (3.5-5.1)
[2024-03-20] MEDS ORDERED: POTASSIUM PHOS 3 MMOL/1 ML INFUSION IV STA (05:58)
[2024-03-20] MEDS: POTASSIUM PHOSPHATE 15 MMOL in SODIUM CHLORIDE 0.9% 250 ML IV ONE (06:34)
--- NOTE | 2024-03-20 07:41 | Critical Care Progress Note ---
Date of Service March 20, 2024 Assessment & Plan (1) Sinus pause: (2) Syncope, cardiogenic: (3) Failed back syndrome: (4) Hypertension, uncontrolled: (5) Hyperlipidemia: Plan Impression: 68-year-old male presents to the ICU following cardiogenic syncope in which he appears to be having long sinus pauses greater than 5 seconds. He is not requiring external pacing or dopamine drip at this time but was admitted to ICU for monitoring. Neuro - Syncopal event Appears to be cardiogenic CT head negative for acute intracranial findings. --Chronic low back pain Takes opioid as needed Cardiac - -- Symptomatic Sinus pauses Probable sinus node dysfunction Multiple syncopal episodes even after coming to the ICU TSH within normal limit Denies tick bites and Lyme panel negative. On metoprolol succinate 25 mg on a daily basis No chest pain. EKG without ST elevation. Troponins within normal limits. Unlikely ACS. Pacer pads currently on patient, atropine at bedside. Continuous monitoring on telemetry Cardiology on board 2D echo 03/20/2024: EF 55-60%, grade 1 diastolic dysfunction, RV normal in size and function HTN On amlodipine and lisinopril at home HLD Continue with rosuvastatin --History of abdominal aortic aneurysm ultrasound screen 04/08/2023:Proximal aorta measurement of 3.1 x 3.6 cm, mid aorta 2.5 x 2.5 cm, distal abdominal aorta 1.8 cm x 2 cm, right common iliac 1.4 x 1.6 cm left common iliac 1.4 x 1.6 cm Following up with [facility] - -- Smokes pipe on a regular basis Currently maintaining oxygen saturations on room air. Continuous monitoring pulse ox GI - N.p.o. for now RENAL/LYTES - Monitor BUN/creatinine Avoid nephrotoxic medication - Strict I's and O's ENDO - TSH within normal limits No history of diabetes. ICU hyperglycemic protocol Goutcontinue allopurinol HEME - H&H stable, monitor routine CBC ID - No indication for infectious process at this time. Trend fever curve --Prophylaxis VTE: Lovenox on hold GI: None Lines: Peripheral Diet: N.p.o. Plan: In/out: -600, urine output 800 mL Will start the patient on dopamine given the persistent sinus pauses Case was discussed with cardiology for permanent pacemaker later today Potassium and phosphorus being replaced I have personally spent 40 minutes of critical care time in the direct management of this patient. This is a life/limb threatening event. This includes time spent evaluating patient, direct bedside care, chart review, placing orders, interpretation of diagnostic studies, discussion with consultants, patient, and family members, as well as other required patient management activities. This time is exclusive of all separately billable procedures, and teaching time and separate from and in addition to any other critical care service time. Please note the above document was generated using voice recognition software. It may contain grammatical, syntax or spelling errors. Admission and Anticipated Discharge Date Admission Date: March 19, 2024 Subjective Patient seen and examined at bedside. No acute distress. Overnight patient had multiple sinus pauses with ranging up to 4-7.5 seconds By the time the nurse went into the room patient was awake and he did not need any atropine push. He had another prolonged sinus pause with brief loss of consciousness early in the morning today while I was in the ICU. He denied any nausea or vomiting prior to the episodes No chest pain, no shortness of breath Smokes pipe Has been afebrile Review of Systems 2 Review of Systems: All systems reviewed & are unremarkable except as noted in HPI & below Physical Exam 2 Physical Exam: Constitutional: No acute distress HEENT: EOMI, PERRLA Respiratory system: Good air entry bilaterally, no wheeze, no rhonchi, no crackles CVS: S1-S2 positive, no murmurs or gallops Abdomen: Soft, nontender, nondistended, positive bowel sounds x4 Extremities: +2 pulses bilaterally radialis/ dorsalis pedis, no cyanosis, no edema Neuro: Awake alert oriented to self Psych: Normal mood and affect G/U: No [place] Skin: no rashes, warm and dry Lymphatic: no cervical or axillary lymphadenopathy Results & Data Results & Data Vital Signs (Past 12 Hours) Vital Signs Temp Pulse Pulse Pulse Pulse Resp BP 03/20/24 06:00 36.6 C 56 L 15 03/20/24 05:00 58 L 16 03/20/24 04:00 53 L 14 03/20/24 03:00 54 L 16 03/20/24 02:23 55 L 03/20/24 02:00 59 L 20 03/20/24 01:00 58 L 16 03/20/24 00:06 56 L 03/20/24 00:00 51 L 12 03/19/24 23:00 36.6 C 54 L 16 03/19/24 22:09 50 L 03/19/24 22:00 54 L 18 03/19/24 21:36 52 L 03/19/24 21:00 36.6 C 55 L 18 03/19/24 20:45 36.6 C 56 L 16 03/19/24 20:00 53 L 17 149/91 H 03/19/24 19:42 68 03/19/24 19:37 0 L BP BP Pulse Ox Pulse Ox O2 Del Method O2 Del Method FiO2 03/20/24 06:00 146/84 H 95 Room Air 03/20/24 05:00 154/89 H 96 Room Air 03/20/24 04:00 146/87 H 97 Room Air 03/20/24 03:00 159/61 H 95 Room Air 03/20/24 02:23 95 Room Air 21 03/20/24 02:00 174/95 H 97 Room Air 03/20/24 01:00 149/88 H 52 L Room Air 03/20/24 00:06 03/20/24 00:00 154/90 H 96 Room Air 03/19/24 23:00 155/86 H 96 Room Air 03/19/24 22:09 97 Room Air 03/19/24 22:00 157/91 H 97 Room Air 03/19/24 21:36 03/19/24 21:00 155/101 H 97 Room Air 03/19/24 20:45 173/89 H 91 Room Air 03/19/24 20:00 95 03/19/24 19:42 03/19/24 19:37 Laboratory Results 03/20/24 04:34 03/20/24 04:34 Coding Level of Care Code 32548 CRITICAL CARE 1ST 30-74M Diagnoses Sinus pause I45.5 Syncope, cardiogenic R55 Failed back syndrome M96.1 Hypertension, uncontrolled I10 Hyperlipidemia E78.5
[2024-03-20 07:47] LABS: Estimated Average Glucose 128 mg/dl; Hemoglobin A1C 6.1 % (4.5-5.6)
--- NOTE | 2024-03-20 09:14 | Cardiology Consultation ---
Date of Consultation March 20, 2024 Assessment & Plan (1) Syncope, cardiogenic: (2) Sinus pause: Patient presents with an episode of joselyn syncope with findings of sinoatrial node dysfunction, multiple long pauses in the range of 6 to 9 seconds reproduced while on telemetry. The patient is on a relatively low dose of metoprolol succinate, however this she does not seem to be atrioventricular conduction but rather what I feel is irreversible sinus node dysfunction. Lyme screen is negative. Echocardiogram reveals preserved ejection fraction without significant valvular heart disease. Recommend proceeding with a dual-chamber permanent pacemaker. Patient agreeable. His is to arrive shortly and I will update her. Will keep patient NPO. Continue to hold metoprolol. Continue amlodipine, lisinopril, rosuvastatin. Hold subcutaneous Lovenox DVT prophylaxis. Addendum: Since initial dictation, patient had another episode. Case reviewed with Dr. Burt of critical care medicine. Will start low-dose peripheral dopamine. Planning for pacemaker this afternoon pending scheduling avai lability. I called and spoke to the patient's spouse, Joellen, and provided updates. History of Present Illness Attending Physician: Marco Bernal, History of Present Illness Mr Bennett Is a 68-year-old male seen in cardiology consultation per the request of Dr. Bernal for the evaluation of syncope and sinus pauses observed on telemetry. The patient has a past medical history of hypertension and is treated with medications including metoprolol succinate 25 mg daily on a chronic basis. He has not on any chronic narcotic analgesics. He describes a longstanding history of low back pain. He is followed by [facility] pain management as an outpatient and underwent L3, L4, L5 nerve block under fluoroscopic guidance in August,. 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 He tells me he went to use the bathroom yesterday and his heard him fall and found him in the bathtub. He could completely lost consciousness and postural tone and did not know the circumstances of how he fell into the bathtub tub. Sinus pauses were first identified in the emergency department and persisted overnight last night with pauses multiple pauses in the range of 6 to 9 seconds. Most recently at 1900 last night there was a pause of 6 seconds, at 4:29 AM there was a pause of 7.5 seconds, at 5:07 AM there was a pause of 7.5 seconds, and at 5:35 AM there was a pause of 7.5 seconds in duration per my review of t elemetry. Reportedly during one of the long pauses earlier this morning the patient was noted to be staring into space in bed. And then spontaneously regained consciousness. At present during my assessment at just before 9 AM he states he has his usual 2 out of 10 intensity chest discomfort, but nothing that has been severe. 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 , spouse -Joellen pipe smoker Allergies Allergy/AdvReac Type Severity Reaction Status Date / Time No Known Allergies Allergy Unknown Verified 03/19/24 17:13 Home Medications Medication Instructions Recorded Confirmed Type amlodipine 10 mg tablet (Norvasc) 10 mg PO QAM 12/07/18 03/19/24 History furosemide 20 mg tablet (Lasix) 20 mg PO QAM 12/07/18 03/19/24 History lisinopril 20 mg tablet 20 mg PO QAM 12/07/18 03/19/24 History potassium chloride 10 mEq 10 meq PO QAM 12/07/18 03/19/24 History capsule,extended release rosuvastatin 40 mg tablet (Crestor) 40 mg PO QAM 12/07/18 03/19/24 History metoprolol succinate 25 mg 25 mg PO DAILY 11/03/20 03/19/24 History tablet,extended release 24 hr oxycodone 5 mg tablet 5 mg PO Q4H PRN pain #15 tabs 11/03/20 03/19/24 Rx allopurinol 300 mg tablet 300 mg PO HS 03/19/24 03/19/24 History meloxicam 15 mg tablet 15 mg PO QAM 03/19/24 03/19/24 History spironolactone 25 mg tablet 25 mg PO QAM 03/19/24 03/19/24 History Patient History Social History Smoking Status: Current some day smoker Tobacco Type: Pipe Tobacco Cessation Education Requested by Patient: No Hx Alcohol Use: Yes Alcohol type: beer Hx Substance Use: No Preferred Language: Khmer Communication Ability: Effective Visual Impairment: No Limitations Hearing Ability: Normal Liquor Clerk Required: No Beliefs That Will Affect Care: None marital status: Current Living Situation: Spouse current occupational status: employed Other Information That Helps Us Care for You: No Feels Safe at Home: Yes Safety Concerns: Feels Safe At This Time Assistive Devices: Denture - Upper, Denture - Lower and Glasses Review of Systems Review of Systems: All systems reviewed & are unremarkable except as noted in HPI & below Physical Exam Physical Exam: General: no acute distress and stated age Eyes: conjunctiva are pink and non-injected, sclera clear Neck: normal jugular venous pulse, no hepatojugular reflux Chest: normal shape and normal respiratory effort Lungs: clear to auscultation and percussion Cardiac Exam: - regular heart sounds, no murmurs, rubs, or gallops, no jugular venous distention Abdomen: abdomen soft, non-tender, no abnormal masses and no hepatosplenomegaly Musculoskeletal: no gait disturbance, no weakness Extremities: no edema and no cyanosis Neuro:awake, conversant, follows commands, no focal motor deficits Psych: appropriate affect and insight. Results & Data Vital Signs (Past 12 Hours) Vital Signs Temp Pulse Pulse Pulse Resp BP BP 03/20/24 08:03 57 L 18 03/20/24 08:01 145/81 H 03/20/24 07:46 164/93 H 03/20/24 07:39 62 21 03/20/24 07:06 52 L 18 03/20/24 07:00 150/93 H 03/20/24 07:00 150/93 H 03/20/24 07:00 150/93 H 03/20/24 06:00 36.6 C 56 L 15 146/84 H 03/20/24 05:00 58 L 16 154/89 H 03/20/24 04:00 53 L 14 146/87 H 03/20/24 03:00 54 L 16 159/61 H 03/20/24 02:23 55 L 03/20/24 02:00 59 L 20 174/95 H 03/20/24 01:00 58 L 16 149/88 H 03/20/24 00:06 56 L 03/20/24 00:00 51 L 12 154/90 H 03/19/24 23:00 36.6 C 54 L 16 03/19/24 22:09 50 L 03/19/24 22:00 54 L 18 03/19/24 21:36 52 L BP Pulse Ox Pulse Ox O2 Del Method O2 Del Method FiO2 03/20/24 08:03 94 Room Air 03/20/24 08:01 03/20/24 07:46 03/20/24 07:39 93 03/20/24 07:06 97 03/20/24 07:00 03/20/24 07:00 03/20/24 07:00 03/20/24 06:00 95 Room Air 03/20/24 05:00 96 Room Air 03/20/24 04:00 97 Room Air 03/20/24 03:00 95 Room Air 03/20/24 02:23 95 Room Air 21 03/20/24 02:00 97 Room Air 03/20/24 01:00 52 L Room Air 03/20/24 00:06 03/20/24 00:00 96 Room Air 03/19/24 23:00 155/86 H 96 Room Air 03/19/24 22:09 97 Room Air 03/19/24 22:00 157/91 H 97 Room Air 03/19/24 21:36 Laboratory Results TSH within normal limits Lyme screen negative Cardiac Enzymes 03/19/24 03/19/24 Range/Units 15:06 21:38 AST 19 (13-39) U/L Troponin I High Sens 6.6 4.9 (0-20) pg/ml Coagulation 03/19/24 03/19/24 Range/Units 15:06 16:46 PT Cancelled 10.7 CBC 03/19/24 03/20/24 Range/Units 15:06 04:34 WBC 11.46 H 11.54 H (4.8-10.8) K/ul RBC 5.86 5.56 (4.70-6.10) M/uL Hgb 17.7 16.8 (14.0-18.0) g/dl Hct 53.5 H 50.4 (42.0-52.0) % Plt Count 167 150 (130-400) K/uL Neut # (Auto) 9.51 H 9.23 H (1.40-6.50) K/uL Lymph # (Auto) 1.18 L 1.49 (1.20-3.40) K/uL Cassia # (Auto) 0.65 H 0.70 H (0.11-0.59) K/uL Eos # (Auto) 0.02 0.04 (0.00-0.50) K/uL Baso # (Auto) 0.06 0.05 (0.00-0.20) K/uL Comprehensive Metabolic Panel 03/19/24 03/20/24 Range/Units 15:06 04:34 Sodium 145 142 (136-145) mmol/L Potassium 4.5 3.8 (3.5-5.1) mmol/L Chloride 108 H 110 H (98-107) mmol/L Carbon Dioxide 30 25 (21-32) mmol/L BUN 22 20 (6-23) mg/dl Creatinine 1.29 1.03 (0.6-1.4) mg/dl Glucose 149 H 138 H (70-99(Fasting)) mg/dl Calcium 9.8 9.3 (8.6-10.3) mg/dl AST 19 (13-39) U/L ALT 22 (7-52) U/L Alkaline Phosphatase 86 (34-104) U/L Total Protein 7.0 (6.0-8.3) gm/dl Albumin 4.5 (3.4-5.0) gm/dl Intake and Output 03/19/24 03/20/24 03/20/24 22:59 06:59 14:59 Intake Total 200 / 200 Output Total 200 / 800 600 / 800 Balance 0 / -600 -600 / -600 Intake: Oral 200 / 200 Output: Urine 200 / 800 600 / 800 Other: Weight 87 kg 88 kg Weight Measurement Method Built in Bedscale Built in [facility] Diagnostic Findings Summary transthoracic echocardiogram performed today 03/20/2024 with images reviewed independently: Interpretation Summary The study was technically adequate for the evaluation of the referral indication. Sinus bradycardia in the 50s present during echocardiogram study. There is mild concentric left ventricular hypertrophy. No regional wall motion abnormalities noted. Left ventricular systolic function is normal. Left Ventricular Ejection Fraction = 55-60%. The right ventricle is normal in size and function. Grade I diastolic dysfunction, (abnormal relaxation pattern). There is no significant valvular disease.
[2024-03-20] MEDS: ROSUVASTATIN CALCIUM 20 MG TAB PO SCH (09:17)
[2024-03-20] MEDS: amLODIPine BESYLATE 5 MG TAB PO SCH (09:17)
[2024-03-20] MEDS ORDERED: STAT IV Infusion **Titration per Protocol STA (09:40)
[2024-03-20] MEDS: DOPamine 400MG / 250ML D5W IV ONE (09:43)
[2024-03-20] MEDS: DOPamine / D5W 400 MG/250 ML BAG IV SCH (09:44)
[2024-03-20] MEDS: POT PHOSPHATE MONOBASIC W/ SOD TAB PO SCH (11:02)
[2024-03-20] MEDS: lisinopril 40 MG TAB PO SCH (11:03)
--- NOTE | 2024-03-20 11:07 | Hospitalist Progress Note ---
Date of Service March 20, 2024 Assessment & Plan (1) Syncope, cardiogenic: (2) Chronotropic incompetence with sinus node dysfunction: (3) Sinus pause: (4) Hypertension, uncontrolled: (5) Failed back syndrome: Plan Patient remains critically ill with frequent prolonged sinus pauses and syncopal events related to this. He requires ICU level care, specialty consultation and monitoring. Communication with cardiology, low-dose dopamine started, coordinating pacemaker insertion today with EP team Continue current medications for hypertension Check labs in a.m. Admission and Anticipated Discharge Date Admission Date: March 19, 2024 Subjective Patient denies any chest pain or shortness of breath, however has had 2-3 episodes of syncope overnight with sinus pauses up to 9 seconds. Physical Exam Physical Exam: Constitutional: Alert, nontoxic HEENT: Mucous membranes moist. Lungs: Clear to auscultation, decreased, no wheezes rales or rhonchi CV: S1-S2, regular Abdomen: Soft, nontender, nondistended Extremities: No significant edema Neuro: No focal deficits Psych: Cooperative, normal mood Results & Data Results & Data Vital Signs (Past 12 Hours) Vital Signs Temp Pulse Pulse Pulse Resp BP BP 03/20/24 08:03 57 L 18 03/20/24 08:01 145/81 H 03/20/24 07:46 164/93 H 03/20/24 07:39 62 21 03/20/24 07:06 52 L 18 03/20/24 07:00 150/93 H 03/20/24 07:00 150/93 H 03/20/24 07:00 150/93 H 03/20/24 06:00 36.6 C 56 L 15 146/84 H 03/20/24 05:00 58 L 16 154/89 H 03/20/24 04:00 53 L 14 146/87 H 03/20/24 03:00 54 L 16 159/61 H 03/20/24 02:23 55 L 03/20/24 02:00 59 L 20 174/95 H 03/20/24 01:00 58 L 16 149/88 H 03/20/24 00:06 56 L 03/20/24 00:00 51 L 12 154/90 H Pulse Ox Pulse Ox O2 Del Method O2 Del Method FiO2 03/20/24 08:03 94 Room Air 03/20/24 08:01 03/20/24 07:46 03/20/24 07:39 93 03/20/24 07:06 97 03/20/24 07:00 03/20/24 07:00 03/20/24 07:00 03/20/24 06:00 95 Room Air 03/20/24 05:00 96 Room Air 03/20/24 04:00 97 Room Air 03/20/24 03:00 95 Room Air 03/20/24 02:23 95 Room Air 21 03/20/24 02:00 97 Room Air 03/20/24 01:00 52 L Room Air 03/20/24 00:06 03/20/24 00:00 96 Room Air Diagnostic Findings Reviewed imaging, laboratory and diagnostic studies. Pertinent findings as below. WBCs 11.5 Hemoglobin 16.8 INR 1.0 Electrolytes stable Creatinine 1.03 Hemoglobin A1c 6.1% Phosphorus 2.2 Magnesium 2.1 LFTs stable TSH 0.95 Urinalysis unremarkable MRSA screen negative Lyme and tickborne disease panel negative to date Echocardiogram shows ejection fraction 55 to 60% with no significant wall motion abnormalities. No significant valvular disease. Personally reviewed EKG, sinus bradycardia with T wave inversion in anterior lateral
--- NOTE | 2024-03-20 13:51 | History & Physical Bridge Note ---
Date of Service March 20, 2024 History & Physical Bridge Note I have examined the patient, reviewed the History & Physical and in the interval since the performance of the History & Physical I have noted the following changes of clinical significance: pt with syncope due to sinus arrest recommend a dual chamber pacemaker; I discussed the procedure and potential risks with the patient-he expressed an understanding and consents signed.
--- NOTE | 2024-03-20 13:52 | Pre Anesthesia Assessment ---
Date of Service March 20, 2024 Pre Sedation Assessment Vital Signs Temp Pulse Pulse Pulse Pulse Resp BP 03/20/24 13:25 03/20/24 11:51 36.7 C 03/20/24 08:03 57 L 18 03/20/24 08:01 145/81 H 03/20/24 07:46 164/93 H 03/20/24 07:39 62 21 03/20/24 07:06 52 L 18 03/20/24 07:00 150/93 H 03/20/24 07:00 150/93 H 03/20/24 07:00 150/93 H 03/20/24 06:00 36.6 C 56 L 15 03/20/24 05:00 58 L 16 03/20/24 04:00 53 L 14 03/20/24 03:00 54 L 16 03/20/24 02:23 55 L 03/20/24 02:00 59 L 20 03/20/24 01:00 58 L 16 03/20/24 00:06 56 L 03/20/24 00:00 51 L 12 03/19/24 23:00 36.6 C 54 L 16 03/19/24 22:09 50 L 03/19/24 22:00 54 L 18 03/19/24 21:36 52 L 03/19/24 21:00 36.6 C 55 L 18 03/19/24 20:45 36.6 C 56 L 16 03/19/24 20:00 53 L 17 149/91 H 03/19/24 19:42 68 03/19/24 19:37 0 L 03/19/24 19:27 54 L 17 151/85 H 03/19/24 18:00 55 L 20 03/19/24 16:42 55 L 16 03/19/24 16:23 56 L 18 03/19/24 15:26 51 L 03/19/24 14:56 37 C 59 L 15 169/79 H BP BP Pulse Ox Pulse Ox O2 Del Method O2 Del Method FiO2 03/20/24 13:25 135/82 92 Room Air 03/20/24 11:51 03/20/24 08:03 94 Room Air 03/20/24 08:01 03/20/24 07:46 03/20/24 07:39 93 03/20/24 07:06 97 03/20/24 07:00 03/20/24 07:00 03/20/24 07:00 03/20/24 06:00 146/84 H 95 Room Air 03/20/24 05:00 154/89 H 96 Room Air 03/20/24 04:00 146/87 H 97 Room Air 03/20/24 03:00 159/61 H 95 Room Air 03/20/24 02:23 95 Room Air 03/20/24 02:00 174/95 H 97 Room Air 03/20/24 01:00 149/88 H 52 L Room Air 03/20/24 00:06 03/20/24 00:00 154/90 H 96 Room Air 03/19/24 23:00 155/86 H 96 Room Air 03/19/24 22:09 97 Room Air 03/19/24 22:00 157/91 H 97 Room Air 03/19/24 21:36 03/19/24 21:00 155/101 H 97 Room Air 03/19/24 20:45 173/89 H 91 Room Air 03/19/24 20:00 95 03/19/24 19:42 03/19/24 19:37 03/19/24 19:27 96 03/19/24 18:00 147/79 H 98 Room Air 03/19/24 16:42 156/93 H 94 Room Air 03/19/24 16:23 98 Room Air 03/19/24 15:26 03/19/24 14:56 95 Room Air Cardiovascular + bradycardic Respiratory normal respiratory effort, lungs clear to auscultation Pre-Sedation Airway Assessment Smoking Status: Current some day smoker Hx Sleep Apnea: No Hx Difficult Intubation: No Short, Thick Neck: No Thyromental Distance: > or= 3.5 Finger Breadths Oral Cavity: + Dentures Mallampati Class: III ASA: ASA3 NPO Status Date of Last Intake of Fluids: 03/20/24 Time of Last Intake of Fluids: 10:30 Date of Last Intake of Solid Food: 03/20/24 Time of Last Intake of Solid Foods: 10:30 Procedure Planning Contraindications for Sedation: none Current Medications Reviewed: Yes Notes The planned sedation has been discussed with the patient. Informed Consent was obtained. I have identified the patient, determined the appropriateness of sedation and have assessed the patient immediately prior to the procedure. All medicine(s) and interventions are by my order.
[2024-03-20] MEDS: WATER, STERILE FOR INJ 10 ML VIAL ONE (15:01)
[2024-03-20] MEDS: LIDOCAINE 1% LOCAL 20 ML VIAL ONE (15:01)
[2024-03-20] MEDS: BUPIVACAINE 0.25% PF 30 ML VIAL ONE (15:01)
[2024-03-20] MEDS: VANCOMYCIN HCL 1000MG/20ML VIAL ONE (15:01)
[2024-03-20] MEDS: NITROGLYCERIN/D5W 100MCG/ML 20ML SYR ONE (15:02)
[2024-03-20] MEDS: ceFAZolin 330 MG/ML 1 GM VIAL ONE (15:02)
[2024-03-20] MEDS: fentaNYL citrate PF 100 MCG/2 ML VIAL ONE (15:07)
[2024-03-20] MEDS: MIDAZOLAM HCL 5 MG/ML 1 ML VIAL ONE (15:08)
--- NOTE | 2024-03-20 15:38 | Post Anesthesia Assessment ---
Date of Service March 20, 2024 Post Sedation Assessment Vital Signs Temp Pulse Pulse Pulse Pulse Resp BP 03/20/24 13:25 03/20/24 13:03 61 20 03/20/24 13:02 108/83 03/20/24 13:02 108/83 03/20/24 13:02 108/83 03/20/24 13:02 108/83 03/20/24 12:54 63 16 03/20/24 12:02 142/114 H 03/20/24 12:00 81 17 03/20/24 11:51 36.7 C 03/20/24 11:30 130/81 03/20/24 11:18 65 17 03/20/24 11:01 147/76 H 03/20/24 11:00 60 13 03/20/24 10:30 141/80 H 03/20/24 10:30 141/80 H 03/20/24 10:21 65 16 03/20/24 10:09 60 18 03/20/24 10:01 150/81 H 03/20/24 09:57 64 16 03/20/24 09:38 140/89 03/20/24 09:30 155/95 H 03/20/24 09:09 56 L 17 03/20/24 09:03 58 L 14 03/20/24 09:00 157/90 H 03/20/24 08:45 57 L 16 03/20/24 08:19 174/100 H 03/20/24 08:03 57 L 18 03/20/24 08:01 145/81 H 03/20/24 07:46 164/93 H 03/20/24 07:39 62 21 03/20/24 07:06 52 L 18 03/20/24 07:00 150/93 H 03/20/24 07:00 150/93 H 03/20/24 07:00 150/93 H 03/20/24 06:00 36.6 C 56 L 15 03/20/24 05:00 58 L 16 03/20/24 04:00 53 L 14 03/20/24 03:00 54 L 16 03/20/24 02:23 55 L 03/20/24 02:00 59 L 20 03/20/24 01:00 58 L 16 03/20/24 00:06 56 L 03/20/24 00:00 51 L 12 03/19/24 23:00 36.6 C 54 L 16 03/19/24 22:09 50 L 03/19/24 22:00 54 L 18 03/19/24 21:36 52 L 03/19/24 21:00 36.6 C 55 L 18 03/19/24 20:45 36.6 C 56 L 16 03/19/24 20:00 53 L 17 149/91 H 03/19/24 19:42 68 03/19/24 19:37 0 L 03/19/24 19:27 54 L 17 151/85 H 03/19/24 18:00 55 L 20 03/19/24 16:42 55 L 16 03/19/24 16:23 56 L 18 BP BP Pulse Ox Pulse Ox O2 Del Method O2 Del Method FiO2 03/20/24 13:25 135/82 92 Room Air 03/20/24 13:03 95 Room Air 03/20/24 13:02 03/20/24 13:02 03/20/24 13:02 03/20/24 13:02 03/20/24 12:54 03/20/24 12:02 03/20/24 12:00 03/20/24 11:51 03/20/24 11:30 03/20/24 11:18 92 03/20/24 11:01 03/20/24 11:00 91 03/20/24 10:30 03/20/24 10:30 03/20/24 10:21 93 03/20/24 10:09 94 03/20/24 10:01 03/20/24 09:57 91 03/20/24 09:38 03/20/24 09:30 03/20/24 09:09 97 03/20/24 09:03 96 03/20/24 09:00 03/20/24 08:45 97 03/20/24 08:19 03/20/24 08:03 94 Room Air 03/20/24 08:01 03/20/24 07:46 03/20/24 07:39 93 03/20/24 07:06 97 03/20/24 07:00 03/20/24 07:00 03/20/24 07:00 03/20/24 06:00 146/84 H 95 Room Air 03/20/24 05:00 154/89 H 96 Room Air 03/20/24 04:00 146/87 H 97 Room Air 03/20/24 03:00 159/61 H 95 Room Air 03/20/24 02:23 95 Room Air 03/20/24 02:00 174/95 H 97 Room Air 03/20/24 01:00 149/88 H 52 L Room Air 03/20/24 00:06 03/20/24 00:00 154/90 H 96 Room Air 03/19/24 23:00 155/86 H 96 Room Air 03/19/24 22:09 97 Room Air 21 03/19/24 22:00 157/91 H 97 Room Air 03/19/24 21:36 03/19/24 21:00 155/101 H 97 Room Air 03/19/24 20:45 173/89 H 91 Room Air 03/19/24 20:00 95 03/19/24 19:42 03/19/24 19:37 03/19/24 19:27 96 03/19/24 18:00 147/79 H 98 Room Air 03/19/24 16:42 156/93 H 94 Room Air 03/19/24 16:23 98 Room Air Recovery Score Activity: Moves 4 extremities Respiration: Deep Breath/Cough Circulation: +/-20% PreAnes Value Consciousness: Fully Awake Oxygen Saturation: > 92% On Room Air Discharge Sedation Level of Care: Fast Track Phase II Post Sedation Plan On clinical assessment, the patient appears to have tolerated the sedation without complications. Patient is recovering as anticipated. Patient will continue to be monitored by nursing and may be discharged when sedation discharge criteria are met per below protocol. Upon Completions of procedure up to 15 minutes continue every 5 minute vital signs and the P.A.R. score; then discharge to a Phase I or Fast Track to Phase II per the following guidelines: * Discharge Patient to appropriate Phase II area if PAR is 8 or greater or return to pre- procedure baseline. The post - procedure orders will be as directed. * If PAR score is less than 8 or not return to pre-procedure baseline then maicol ent will follow Phase I monitoring till PAR is reached for Phase II. The Phase I may be done in procedure room or may call to secure a Phase I area. * If naloxone or flumazenil are used for reversal, hold in Phase I for continued monitoring from when last reversal dose was given for a minimum of 60 minutes or longer pending the nurse and/or physician discretion of patient condition before discharge to Phase II. Please call the Sedation Physician to re-evaluate and complete post-note for discharge to Phase II area. Do NOT discharge from procedure sedation or Phase 1 until post- sedation e valuation note is complete by procedure /sedation MD Sedation Discharge Instructions to be given to the patient at discharge to home.
--- NOTE | 2024-03-20 15:45 | Operative Report ---
Post Operative Report DICTATED BY:Ivonne Alberto D.O. DATE OF PROCEDURE: 03/20/2024 PREOPERATIVE DIAGNOSES: syncope and sinus arrest POSTOPERATIVE DIAGNOSIS: Same PROCEDURE: A dual-chamber rate responsive permanent pacemaker and intracardiac electrogram His bundle recordings, along with a peripheral venogram under fluoroscopic guidance. SURGEON: Ivonne Alberto DO ASSISTANTS: None. ANESTHESIA: Monitored conscious sedation administered under my supervision by Tawanna Holliday. Start time 14:12, end time 15:32, a total of 4 mg of Versed and 100 mcg of fentanyl. INTRAVENOUS FLUIDS: 0 mL. CONTRAST: 30 mL. ANTIBIOTICS: 2 grams of Ancef. ADDITIONAL MEDICATIONS: 100mcg nitroglycerin IV BLOOD LOSS: 50 mL. URINE OUTPUT: Not applicable. SPECIMENS: None. FINDINGS: See below. DRAINS: None. COMPLICATIONS: None. CONDITION: Stable. INDICATIONS: This is a 68-year-old gentleman who has a past medical history HTN, CBP, GURVINDER, AAA, HLD. he was admitted to [facility] due to syncope correlating with sinus arrest up to 9 second pauses. he was recommended a pacemaker prior to hospital discharge. CONSENT: Consent was obtained prior to the patient going into the electrophysiology lab. The patient was informed of the risks, benefits, and alternatives to the procedure. Risks include, but not limited to, sudden cardiac , cardiac arrhythmias, cerebrovascular accident, myocardial infarction, injury to his blood vessels, chamber of the heart and lung, bleeding and infection. The patient understood these risks and agreed to the procedure as planned. Informed consent was obtained. DESCRIPTION OF PROCEDURE: The patient was brought into electrophysiology lab in a fasting state. He was connected to continuous cardiac monitoring. A timeout was performed to ensure the patient's identity and procedure correctly. He was prepped and draped in the left infraclavicular space in normal surgical standard fashion. Monitored conscious sedation was given throughout the procedure for the patient's comfort level. [place] precautions were maintained throughout the procedure. Prophylactic antibiotics were given prior to incision. A 20 mL of 1% lidocaine and bupivacaine mixture were given in the left deltopectoral groove. An incision was made in the left deltopectoral groove. Blunt dissection was performed down to the pectoralis muscle. Then, using blunt dissection over the pectoralis muscle within the pectoral fascia, a pacemaker pocket was created. Then, a peripheral venogram was performed to identify the axillary vein. Venous axillary access was obtained through a needlestick- however I hit the artery. Then I regave another venogram and it looked like the vein had spasmed when I had gotten venous access and not able to advance the wire. So I gave IV nitroglycerin and then repeated a 3rd venogram and the vessel opened up and I was able to get access via micropuncture. A guidewire was inserted without any resistance.The micropuncture sheath was swapped out for a 6 [place] sheath. A 6-[place] sheath was inserted over the guidewire without any resistance. Dilator was removed and a second guidewire was inserted through the sheath to allow for retained venous access. Then a 9 [place] sheath was inserted over one of the guidewires. The guidewire an d dilator were removed. Then, the CPS M1A1 Tank Crewman 3D medium sheath was inserted through the 9-[place] sheath over a Glidewire into the right ventricle. The Glidewire and dilator were removed. Then, the left bundle lead was advanced through the sheath and intracardiac electrogram His bundle recordings were performed when the camera was in MAIER 10. Once I found where the His bundle is, see below for results, I then moved the camera to MAIER 30 and marked where the His bundle was on my fluoroscopy screen. I came down about 2 cm from this in a line that would extend out to the apex and then started coming on pacing. Once I found an area where I had a nice W formed pace complex in my lead V1, I then moved the camera to SUBHASH 30. Then the helix was extended into the septum. Then the helix locking tool was placed. Then the lead was screwed further into the septum while pacing by giving slow clockwise turns. The paced complex changed to a nice R' in V1 and the pacing stim to peak QRS in V6 was good. Of note in order to advance the stylet I had to use the stiffer red colored stylet. I slit the CPS M1A1 Tank Crewman 3D medium sheath under fluoroscopic guidance and left the 9- [place] sheath in while I positioned the right atrial lead. A 6-[place] sheath was inserted over the retained guidewire, the guidewire and dilator removed. The right atrial lead was then advanced into right atrium and positioned into right atrial appendage under fluoroscopic guidance. There was adequate pacing and sensing thresholds and no diaphragmatic stimulation with high output pacing. The 6-[place] sheath was peeled away and the lead was fixated to the pectoralis muscle using 0 silk suture. The 9-[place] sheath around the left bundle lead was peeled away and the lead was fixated to pectoralis muscle using 0 silk suture. The pocket was flushed with copious amounts of vancomycin and saline wash and inspected for hemostasis. The leads were then attached to the pulse generator making sure the pins were in appropriate position, passed set screws, and set screws were all tightened. Pulse generator was then placed in the pocket, making sure the leads were lying flat beneath the device. The incision was cl osed in a 3-layer fashion using 2-0 Vicryl interrupted suture, followed by 3-0 Vicryl interrupted suture, followed by 4-0 Monocryl running stitch. Then a primaseal dressing was placed EQUIPMENT: 1. Pulse generator is a Braclet MRI Model Number [id number] SN: [id number] 2. Right atrial lead, PointCare UltiPace [id number] SN: [id number] 3. Left bundle lead, PointCare UltiPace [id number] SN: [id number] INTRAPROCEDURAL FINDINGS: 1. Intracardiac electrogram His bundle recordings, AH is 143 milliseconds, HV is 54 milliseconds. 2. Right atrial lead, P waves 3.4 millivolts, impedance 616 ohms, threshold 0.9 volts at 0.5 milliseconds. 3. Left bundle lead, R waves 4.2 millivolts, impedance 700 ohms, threshold 0.6 volts at 0.5 milliseconds. FINAL MEASUREMENTS THROUGH THE DEVICE: 1. Right atrial lead, P waves 3.9millivolts, impedance 750 ohms, threshold 0.5 volt at 0.4 milliseconds. 2. Left bundle lead, R waves 6.5 millivolts, impedance 760 ohms, threshold 0.5 volts at 0.4 milliseconds. FINAL PARAMETERS: DDD 60/130, right atrial amplitude 3.5 volts, pulse width 0.4 milliseconds, sensitivity 0.5 millivolts. Left bundle lead amplitude 3.5 volts, pulse width 0.4 milliseconds, sensitivity 1.2 millivolts. IMPRESSION: Successful dual chamber rate responsive permanent pacemaker under fluoroscopic guidance along with peripheral venogram and intracardiac electrogram His bundle recordings, all under fluoroscopic guidance secondary to syncope due to sinus arrest PLAN: Monitor the patient post-procedure. A 12-lead ECG, chest x-ray. He is not to lift the left elbow or left shoulder for 1 month. He cannot lift more than 10 pounds with the left arm for 2 weeks. He is to keep the dressing on and dry until his wound check next week.
--- NOTE | 2024-03-20 17:42 | XRay Report ---
EXAM: Radiograph of the Chest 1 View INDICATION: Pacemaker placement. TECHNIQUE: Frontal view of the chest. COMPARISON: 03/19/2024 FINDINGS: Lungs and pleural spaces: No pleural effusion or pneumothorax. No consolidation or pulmonary edema. Heart: Stable prominent cardiac shadow. Mediastinum: Normal contour. Bones/joints: Degenerative changes noted throughout the spine and both shoulders. No lytic or blastic lesions noted. Soft tissues: No abnormality noted. No radiopaque foreign body noted. Tubes, lines and devices: Intact right atrial and ventricular pacing wires noted. Upper abdomen: No abnormality noted. IMPRESSION: Satisfactory appearance of cardiac pacing device. No pneumothorax. ACT 112: Negative or not required by law. Electronically signed by Gloria Gurrola 03-20-2024 5:42 PM
--- NOTE | 2024-03-20 21:47 | Electrocardiogram Report ---
Test Reason : Blood Pressure : */* mmHG Vent. Rate : 51 BPM Atrial Rate : 51 BPM P-R Int : 162 ms QRS Dur : 88 ms QT Int : 406 ms P-R-T Axes : 42 24 134 degrees QTcB Int : 374 ms Sinus bradycardia T wave abnormality, consider lateral ischemia Abnormal ECG When compared with ECG of 19-Mar-2024 15:06, T wave inversion now evident in Anterior leads Confirmed by Femi Johnson ([id number]) on 03/20/2024 9:47:03 PM Referred By: REFERRED SELF Confirmed By: Femi Johnson
--- NOTE | 2024-03-20 21:47 | Electrocardiogram Report ---
Test Reason : Blood Pressure : */* mmHG Vent. Rate : 54 BPM Atrial Rate : 54 BPM P-R Int : 142 ms QRS Dur : 86 ms QT Int : 408 ms P-R-T Axes : 45 19 104 degrees QTcB Int : 386 ms Poor data quality, interpretation may be adversely affected Sinus bradycardia Poor R wave progression, consider anterior SC vs. lead placement vs. LVH T wave abnormality, consider lateral ischemia Abnormal ECG When compared with ECG of 10-Oct-2019 10:02, T wave inversion more evident in Lateral leads Confirmed by Femi Johnson ([id number]) on 03/20/2024 9:46:46 PM Referred By: REFERRED SELF Confirmed By: Femi Johnson
--- NOTE | 2024-03-20 21:48 | Electrocardiogram Report ---
Test Reason : Blood Pressure : */* mmHG Vent. Rate : 51 BPM Atrial Rate : 51 BPM P-R Int : 164 ms QRS Dur : 84 ms QT Int : 424 ms P-R-T Axes : 36 10 124 degrees QTcB Int : 390 ms Sinus bradycardia T wave abnormality, consider lateral ischemia Abnormal ECG When compared with ECG of 20-Mar-2024 03:01, No significant change was found Confirmed by Femi Johnson ([id number]) on 03/20/2024 9:48:07 PM Referred By: REFERRED SELF Confirmed By: Femi Johnson
[2024-03-21 03:55] LABS: Basophils # (auto) 0.03 K/uL (0.00-0.20); Basophils % (auto) 0.3 %; Eosinophils # (auto) 0.05 K/uL (0.00-0.50); Eosinophils % (auto) 0.4 %; Hematocrit (blood only) 49.4 % (42.0-52.0); Hemoglobin 16.9 g/dl (14.0-18.0); Immature Granulocytes # (auto) 0.04 K/uL (0.01-0.20); Immature Granulocytes % (auto) 0.3 %; Lymphocytes # (auto) 1.22 K/uL (1.20-3.40); Lymphocytes % (auto) 10.4 %; Mean Corpuscular Hemoglobin 30.6 pg (25.0-34.0); Mean Corpuscular Hgb Conc 34.2 g/dL (32.0-36.0); Mean Corpuscular Volume 89.3 fL (80.0-100.0); Mean Platelet Volume 10.3 fL (9.4-12.4); Monocytes # (auto) 0.74 K/uL (0.11-0.59); Monocytes % (auto) 6.3 %; Neutrophils % (auto) 82.3 %; Platelet Count 154 K/uL (130-400); RDW Coefficient of Variation 13.2 % (11.5-14.5); RDW Standard Deviation 43.3 fL (36.4-46.3); Red Blood Count 5.53 M/uL (4.70-6.10); White Blood Count 11.68 K/ul (4.8-10.8)
[2024-03-21 04:16] LABS: BUN Creatinine Ratio 22.6 (10-20); Calcium 8.9 mg/dl (8.6-10.3); Creatinine Clr Calc Pharmacy 69.3 ml/min; Phosphorus 3.6 mg/dl (2.5-4.9); Potassium 3.6 mmol/L (3.5-5.1)
[2024-03-21] MEDS: POTASSIUM CHLORIDE 20 MEQ/15 ML UDC PO STA (06:14)
--- NOTE | 2024-03-21 07:19 | Critical Care Progress Note ---
Date of Service March 21, 2024 Assessment & Plan (1) Sinus pause: (2) Syncope, cardiogenic: (3) Failed back syndrome: (4) Hypertension, uncontrolled: (5) Hyperlipidemia: Plan Impression: 68-year-old male presents to the ICU following cardiogenic syncope in which he appears to be having long sinus pauses greater than 5 seconds. He is not requiring external pacing or dopamine drip at this time but was admitted to ICU for monitoring. Neuro - -- Multiple Syncopal event Appears to be cardiogenic CT head negative for acute intracranial findings. --Chronic low back pain Takes opioid as needed Cardiac - -- Symptomatic Sinus pauses Probable sinus node dysfunction s/p permanent pacemaker 03/20/2024 Multiple syncopal episodes even after coming to the ICU TSH within normal limit Denies tick bites and Lyme panel negative. On metoprolol succinate 25 mg on a daily basis No chest pain. EKG without ST elevation. Troponins within normal limits. Unlikely ACS. 2D echo 03/20/2024: EF 55-60%, grade 1 diastolic dysfunction, RV normal in size and function HTN On amlodipine and lisinopril at home HLD Continue with rosuvastatin --History of abdominal aortic aneurysm ultrasound screen 04/08/2023:Proximal aorta measurement of 3.1 x 3.6 cm, mid aorta 2.5 x 2.5 cm, distal abdominal aorta 1.8 cm x 2 cm, right common iliac 1.4 x 1.6 cm left common iliac 1.4 x 1.6 cm Following up with [facility] - -- Smokes pipe on a regular basis Currently maintaining oxygen saturations on room air. Continuous monitoring pulse ox GI - N.p.o. for now RENAL/LYTES - Monitor BUN/creatinine Avoid nephrotoxic medication - Strict I's and O's ENDO - TSH within normal limits No history of diabetes. ICU hyperglycemic protocol Goutcontinue allopurinol HEME - H&H stable, monitor routine CBC ID - No indication for infectious process at this time. --Prophylaxis VTE: IPC GI: None Lines: Peripheral Diet: Cardiac Plan: In/out: -645, urine output 1250 Potassium being replaced Patient blood pressure is on the higher side, he will be given lisinopril as well as amlodipine. If the blood pressure is still high then I think it is okay to resume beta-blockers given that he already has a pacemaker Hemodynamically stable to be done with the medical floor Please note the above document was generated using voice recognition software. It may contain grammatical, syntax or spelling errors.Any formal questions or concerns about the content, text or information contained within the body of this dictation should be directly addressed to the provider for clarification. Admission and Anticipated Discharge Date Admission Date: March 19, 2024 Subjective Patient seen and examined at bedside. No acute distress, no adverse events overnight Systolic blood pressure was in the 160s when I saw him Heart rate ranging between 60-65 No nausea vomiting No headache, no blurry vision Mild soreness at the site of the permanent pacemaker Fair appetite Review of Systems 2 Review of Systems: All systems reviewed & are unremarkable except as noted in Subjective Physical Exam 2 Physical Exam: Constitutional: No acute distress HEENT: EOMI, PERRLA Respiratory system: Good air entry bilaterally, no wheeze, no rhonchi, no crackles CVS: S1-S2 positive, no murmurs or gallops, Left sided PPM, minimal hematoma around the pocket Abdomen: Soft, nontender, nondistended, positive bowel sounds x4 Extremities: +2 pulses bilaterally radialis/ dorsalis pedis, no cyanosis, no edema Neuro: Awake alert oriented to self and place Psych: Normal mood and affect G/U: No [place] Skin: no rashes, warm and dry Lymphatic: no cervical or axillary lymphadenopathy Results & Data Results & Data Vital Signs (Past 12 Hours) Vital Signs Temp Pulse Pulse Resp BP Pulse Ox O2 Del Method 03/21/24 06:00 36.6 C 60 19 158/89 H 94 Room Air 03/21/24 05:00 60 18 152/91 H 93 Room Air 03/21/24 04:00 60 18 157/96 H 92 Room Air 03/21/24 03:00 62 20 153/96 H 92 Room Air 03/21/24 02:00 36.5 C 60 18 163/91 H 92 Room Air 03/21/24 01:00 60 13 164/95 H 93 Room Air 03/21/24 00:00 60 20 151/90 H 92 Room Air 03/20/24 23:54 60 03/20/24 23:00 60 17 149/94 H 94 Room Air 03/20/24 22:00 36.7 C 60 17 152/100 H 94 Room Air 03/20/24 21:00 60 20 164/93 H 95 Room Air 03/20/24 20:00 60 16 162/90 H 95 Room Air Laboratory Results 03/21/24 03:34 03/21/24 03:34 Coding Level of Care Code 49144 SUB INP/OBS CARE 2/35MIN Diagnoses Sinus pause I45.5 Syncope, cardiogenic R55 Failed back syndrome M96.1 Hypertension, uncontrolled I10 Hyperlipidemia E78.5
--- NOTE | 2024-03-21 08:43 | Electrocardiogram Report ---
Test Reason : Blood Pressure : */* mmHG Vent. Rate : 60 BPM Atrial Rate : 60 BPM P-R Int : 188 ms QRS Dur : 90 ms QT Int : 414 ms P-R-T Axes : -6 10 138 degrees QTcB Int : 414 ms Atrial-paced rhythm Cannot rule out Inferior infarct , age undetermined T wave abnormality, consider lateral ischemia Abnormal ECG When compared with ECG of 20-Mar-2024 04:27, Electronic atrial pacemaker has replaced Sinus rhythm Confirmed by Femi Johnson ([id number]) on 03/21/2024 8:43:26 AM Referred By: REFERRED SELF Confirmed By: Femi Johnson
--- NOTE | 2024-03-21 10:38 | Cardiology Progress Note ---
Date of Service March 21, 2024 Assessment & Plan (1) Syncope, cardiogenic: (2) Sinus pause: (3) Sick sinus syndrome: (4) HTN (hypertension): Plan * Status post dual-chamber [place] permanent pacemaker 03/20/2024 with right atrial lead, left bundle lead. * Chest x-ray without pneumothorax, device interrogation reveals normal device function * Stable for transfer out of the intensive care unit. * Mentation better than yesterday , but perhaps not quite at baseline per spouse * Increase activity. * No heparin, lovenox, or SQ heparin given new pacemaker pocket (in effort to reduce risk of pocket hematoma) * Resume FACIALIST Metoprol, KCL, spironolactone. Continue to hold FACIALIST furosemide today. * Stable for transfer to PCU. * Wound check in 1 week. Admission and Anticipated Discharge Date Admission Date: March 19, 2024 Subjective Patient seen in cardiology follow-up status post dual-chamber pacemaker yesterday 03/20/2024. His spouse, Joellen is at the bedside. He is sitting in the bedside chair. Telemetry reveals sinus rhythm with atrial pacing 70% the time per pacemaker check. 1 brief episode of paroxysmal atrial tachycardia was observed on 03/21/2024 at 1:32 AM without associated symptoms. Review of Systems Review of Systems: All systems reviewed & are unremarkable except as noted in HPI & below Physical Exam Physical Exam: General: no acute distress and stated age Eyes: conjunctiva are pink and non-injected, sclera clear Neck: normal jugular venous pulse, no hepatojugular reflux Chest: normal shape and normal respiratory effort -Left infraclavicular device pocket is c lean dry and intact, has minimal tinge of blood over the incision site. Dressing was not removed Lungs: clear to auscultation and percussion Cardiac Exam: - regular heart sounds, no murmurs, rubs, or gallops, no jugular venous distention Abdomen: abdomen soft, non-tender, no abnormal masses and no hepatosplenomegaly Musculoskeletal: no gait disturbance, no weakness Extremities: no edema and no cyanosis Neuro:awake, conversant, follows commands, no focal motor deficits Psych: appropriate affect and insight. Results & Data Vital Signs (Past 12 Hours) Vital Signs Temp Pulse Pulse Resp BP BP Pulse Ox 03/21/24 09:03 60 17 95 03/21/24 09:00 136/84 03/21/24 08:54 60 21 95 03/21/24 08:50 149/96 H 03/21/24 08:24 61 21 96 03/21/24 08:00 171/112 H 03/21/24 08:00 60 22 97 03/21/24 08:00 36.6 C 03/21/24 07:59 168/102 H 03/21/24 07:59 168/102 H 03/21/24 07:57 62 23 96 03/21/24 07:48 66 03/21/24 07:03 60 16 95 03/21/24 07:01 176/114 H 03/21/24 07:00 60 16 95 03/21/24 06:00 36.6 C 60 19 158/89 H 94 03/21/24 05:00 60 18 152/91 H 93 03/21/24 04:00 60 18 157/96 H 92 03/21/24 03:00 62 20 153/96 H 92 03/21/24 02:00 36.5 C 60 18 163/91 H 92 03/21/24 01:00 60 13 164/95 H 93 03/21/24 00:00 60 20 151/90 H 92 03/20/24 23:54 60 03/20/24 23:00 78 20 03/20/24 23:00 60 17 149/94 H 94 O2 Del Method 03/21/24 09:03 03/21/24 09:00 03/21/24 08:54 03/21/24 08:50 03/21/24 08:24 03/21/24 08:00 03/21/24 08:00 03/21/24 08:00 03/21/24 07:59 03/21/24 07:59 03/21/24 07:57 03/21/24 07:48 03/21/24 07:03 03/21/24 07:01 03/21/24 07:00 03/21/24 06:00 Room Air 03/21/24 05:00 Room Air 03/21/24 04:00 Room Air 03/21/24 03:00 Room Air 03/21/24 02:00 Room Air 03/21/24 01:00 Room Air 03/21/24 00:00 Room Air 03/20/24 23:54 03/20/24 23:00 03/20/24 23:00 Room Air Laboratory Results CBC 03/21/24 Range/Units 03:34 WBC 11.68 H (4.8-10.8) K/ul RBC 5.53 (4.70-6.10) M/uL Hgb 16.9 (14.0-18.0) g/dl Hct 49.4 (42.0-52.0) % Plt Count 154 (130-400) K/uL Neut # (Auto) 9.60 H (1.40-6.50) K/uL Lymph # (Auto) 1.22 (1.20-3.40) K/uL [place] # (Auto) 0.74 H (0.11-0.59) K/uL Eos # (Auto) 0.05 (0.00-0.50) K/uL Baso # (Auto) 0.03 (0.00-0.20) K/uL Comprehensive Metabolic Panel 03/21/24 Range/Units 03:34 Sodium 141 (136-145) mmol/L Potassium 3.6 (3.5-5.1) mmol/L Chloride 108 H (98-107) mmol/L Carbon Dioxide 26 (21-32) mmol/L BUN 24 H (6-23) mg/dl Creatinine 1.06 (0.6-1.4) mg/dl Glucose 124 H (70-99(Fasting)) mg/dl Calcium 8.9 (8.6-10.3) mg/dl Intake and Output 03/20/24 03/21/24 03/21/24 22:59 06:59 14:59 Intake Total 505 / 605 300 / 300 Output Total 850 / 1250 200 / 1250 Balance -345 / -645 -200 / -645 300 / 300 Intake: IV 505 / 505 DOPamine / D5W 400 mg In 250 ml 250 / 250 @ 5 MCG/KG/MIN 16.5 mls/hr IV .[id number] [facility] Rx#:[id number] Potassium Phosphate 15 mmol In 255 / 255 Sodium Chloride 0.9% 250 ml @ 88 mls/hr IV ONE ONE Rx#: [id number] Oral 300 / 300 Output: Urine 850 / 1250 200 / 1250 Other: Weight 86.1 kg Weight Measurement Method Built in [facility] Diagnostic Findings Chest x-ray was performed 03/20/2024 at 1730, radiology report reviewed, image reviewed independently, atrial and left bundle leads placed appropriately, no pneumothorax
[2024-03-21] MEDS: POTASSIUM CHLORIDE 10 MEQ TABCR PO SCH (11:11)
[2024-03-21] MEDS: METOPROLOL SUCC 25MG EXT REL TAB PO SCH (11:11)
[2024-03-21] MEDS: SPIRONOLACTONE 25 MG TAB PO SCH (11:12)
[2024-03-21 11:52] VITALS: TEMP 97.5
--- NOTE | 2024-03-21 11:53 | Discharge Summary ---
Discharge Summary Date of Service March 21, 2024 Principal Dx & Hospital Course #1 = Principal Diagnosis (1) Syncope, cardiogenic: (2) Chronotropic incompetence with sinus node dysfunction: (3) Sinus pause: (4) Hypertension, uncontrolled: (5) Failed back syndrome: (6) Mild cognitive impairment: Plan Patient presented to the emergency room with acute syncopal event at home with a fall in the bathroom. In the emergency room laboratory workup was unremarkable, however on telemetry monitoring patient was having greater than 5-second pauses with some symptoms. This is the etiology of the patient's syncope. Patient was admitted to the hospital on a monitored/ICU unit. Cardiology consultation was obtained. External pacer pads were placed but whenever you needed. Atropine was available as well for severe bradycardia. Through the initial night patient had several episodes of sinus pauses greater than 5 seconds extending some to 9 seconds. He also had a few episodes of syncope related with these pauses. Patient was placed on dopamine IV drip to help maintain adequate heart rate. Electrophysiology consultation was obtained. Patient was evaluated and taken for dual-chamber pacemaker placement. Patient did have some irritability, agitation and confusion this is associated most likely due to his syncopal events and hypoperfusion from his sinus pauses as well as some of the medications he received for his pacemaker. reports that he has had some signs of confusion and memory issues even prior to admission. I suspect patient's acute medical issue is exacerbated this. On the day of discharge his mentation has significantly improved. Patient's post pacemaker course was uneventful. Chest x-ray showed no pneumothorax. Interrogation revealed that the device was working appropriately. He was up and ambulating. He had coordinated outpatient follow-up with cardiology. He can resume his usual metoprolol now that he has a pacemaker for blood pressure control continue his other medications and follow-up with his outpatient providers. Notes For Next Care Provider May need additional management of hypertension Follow-up with cardiology as coordinated through their office Medication Changes From Visit None Admission HPI Per Admitting Provider Patient is 68-year-old gentleman with significant history of difficult to control hypertension. Presented to the emergency room today after having a syncopal event and falling in the tub in the bathroom. Patient did not complain of any significant injury. Denied any chest pain or shortness of breath. In the emergency room laboratory workup was unremarkable, however on telemetry monitoring he had a greater than 5-second sinus pause. He felt a little bit weak with this but otherwise no chest pain shortness of breath or near syncopal symptoms. With these findings patient was referred to our service for further evaluation. Time my evaluation patient is asymptomatic. He reports has been feeling well. However, his at the bedside states that on Wednesday he just seems to be a little bit off. On further questioning he states that he just really felt fatigued. Patient reports that he was getting up and going into the bathroom when he had the syncopal event. He denies any chest pain, no shortness of breath. No recent fever or chills. No recent URI symptoms. No nausea or vomiting. No diaphoresis. No new problems with his bowels or bladder. No significant joint swelling. 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 Has not noticed any changes in his ability to complete his work. Never had any symptoms like this previous. Denies any palpitations or feeling as if his heart skipping. He smokes a pipe intermittently denies any significant alcohol use. He states that there is been no recent changes in his medications Admission Exam Per Admitting Provider See H&P Discharge Exam Constitutional: Alert, nontoxic HEENT: Mucous membranes moist. Lungs: Clear to auscultation, decreased, no wheezes rales or rhonchi CV: S1-S2, regular Chest: Pacemaker dressing clean dry and intact Abdomen: Soft, nontender, nondistended Extremities: No significant edema Neuro: No focal deficits Psych: Cooperative, normal mood Updated Medication List Medication Instructions Recorded Confirmed Type amlodipine 10 mg tablet (Norvasc) 10 mg PO QAM 12/07/18 03/19/24 History furosemide 20 mg tablet (Lasix) 20 mg PO QAM 12/07/18 03/19/24 History lisinopril 20 mg tablet 20 mg PO QAM 12/07/18 03/19/24 History potassium chloride 10 mEq 10 meq PO QAM 12/07/18 03/19/24 History capsule,extended release rosuvastatin 40 mg tablet (Crestor) 40 mg PO QAM 12/07/18 03/19/24 History metoprolol succinate 25 mg 25 mg PO DAILY 11/03/20 03/19/24 History tablet,extended release 24 hr oxycodone 5 mg tablet 5 mg PO Q4H PRN pain #15 tabs 11/03/20 03/19/24 Rx allopurinol 300 mg tablet 300 mg PO HS 03/19/24 03/19/24 History meloxicam 15 mg tablet 15 mg PO QAM 03/19/24 03/19/24 History spironolactone 25 mg tablet 25 mg PO QAM 03/19/24 03/19/24 History Hospital Stay Data Consultations 03/19/24 17:53 ED Decision to Admit Stat 03/19/24 19:22 Consult [employer] Routine 03/19/24 21:13 Consult Cardiology Routine Procedures Performed Operation Date: 03/20/24 13:00 Actual Procedures p Pacer with A/V Leads (Dual) - DO lee Jo Venogram, Unilateral - DO lee Jo Bundle of his Recording - Ivnone Alberto DO Diagnostic Imagining Performed 03/19/24 15:[address] [CT head/brain wo con] Stat 03/20/24 14:03 CL Cath Imgs for PACS use only Routine 03/20/24 14:15 EP Lab Images for PACS ONCE Reviewed imaging, laboratory and diagnostic studies. Pertinent findings as below. WBCs 11.6 Hemoglobin 16.9 Platelets of 154 Sodium 141 Potassium 3.6 Bicarb 26 BUN 24 creatinine 1.6 Magnesium 2.0 Echocardiogram showed ejection fraction 55 to 60%, mild left ventricular hypertrophy, normal right ventricular function. No significant valvular diseas e. I refer to full report for details. I refer you to the pacemaker implantation report for details Pending Results Patient Have Any Pending Studies at Discharge: No Discharge Instructions Given to Patient (Per Discharging Provider) Device and wound check at [facility] in about 10 days-the office will contact you with the time and day. Total Time Total Time Spent Total Time Spent (In Minutes): 38
[2024-03-21 12:33] VITALS: RESP 21; O2SAT 97
[2024-03-21 13:15] VITALS: BP 142/83; PULSE 65
[2024-03-23 13:17] LABS: Babesia microti DNA Not Detected (Not Detected)
== END 2024-03-21 13:17 | disposition home or self-care (01) | DRG 244 ==
LOC: ED 14:41 → 1E 18:25